=== PATIENT | male | born 2000 | race Two or more races ===

== ENCOUNTER 2025-04-02 10:29 | Emergency (ER) | payer OTHER, SELFPAY ==
--- NOTE | ~2025-04-02 | XR_ITS ---
EXAMINATION: XR CHEST CLINICAL INFORMATION: cough, sob COMPARISON: None available. TECHNIQUE: 2 views of the chest were obtained. FINDINGS: The cardiomediastinal silhouette is within normal limits. The lungs are well expanded. There is no focal consolidation, edema, or effusion. No pneumothorax. No acute osseous abnormality. XR/XR chest 2V IMPRESSION: No acute findings Electronically signed by: Zafar Kang MD 04/02/2025 11:29 AM [facility]
[2025-04-02 10:40] VITALS: BP 141/64; PULSE 89; RESP 18; TEMP 36.9; O2SAT 94; BMI 38.9
[2025-04-02 11:18] VITALS: PULSE 89; RESP 24; O2SAT 94
[2025-04-02] MEDS: Albuterol Sulfate 5 MG, Albuterol/Iprat 2.5/0.5MG 3 ML 3 ML INHALE (11:24)
[2025-04-02 11:36] LABS: MANUAL DIFF FLAG NO
[2025-04-02 11:38] LABS: Hematocrit 42.8 % (42.0-52.0); Hemoglobin 14.5 g/dl (14.0-18.0); Imm Gran Abs Auto 0.06 X10*3/uL (0.00-0.03); Imm Gran Pct Auto 0.5 % (0.0-0.4); Lymphocytes Absolute Auto 2.9 X10*3/uL (1.2-4.9); Mean Corpuscular HGB Conc 33.9 g/dl (31.0-36.0); Mean Corpuscular Hemoglobin 29.2 pg (27.0-33.0); Mean Corpuscular Volume 86.3 fL (80.0-98.0); NRBC Abs Auto 0.000 X10*3/uL (0.0-0.012); NRBC Pct Auto 0.0 /100WBC (0.0-0.2); Platelet Count 335 X10*3/uL (160-400); Red Blood Count 4.96 X10*6/uL (4.60-5.80); White Blood Count 12.5 X10*3/uL (4.8-10.8)
[2025-04-02 11:50] LABS: Anion Gap 11 (12-20); Blood Urea Nitrogen 8 mg/dL (9-16); Calcium 9.5 mg/dL (8.4-10.2); Carbon Dioxide 25 mmol/L (22-29); Chloride 108 mmol/L (96-108); Creatinine Clr Calc Pharmacy 159.7; Estimated Glomerular Filt Rate > 60; Potassium 4.0 mmol/L (3.3-5.1); Sodium 140 mmol/L (135-145)
[2025-04-02 11:55] VITALS: PULSE 85; RESP 20; O2SAT 100
[2025-04-02 11:57] LABS: COVID-19 Test Negative (Negative); IDNOW Serial# 55D5AD1C; IDNOW Serial# 58CA691E; Influenza B2 Negative (Negative)
--- NOTE | 2025-04-02 11:58 | ED_ITS ---
HPI - Asthma General Chief Complaint: Asthma Stated Complaint: trouble breathing, asthma Time Seen by Provider: 04/02/25 10:36 Source: patient, RN notes reviewed and old records reviewed Mode of arrival: ambulatory History of Present Illness ED Provider: Maren Hu PA-C HPI Narrative: 24-year-old male with a past medical history of asthma presenting to the ED complaining of productive cough of phlegm and SOB x 5 days. States he was exposed to cigarette smoke over the weekend which triggered his asthma. Has been using rescue inhaler at home. Denies having nebulizer. Denies recent steroid use. Denies fever, chills, recent travel/long car rides, pedal edema/calf tenderness, sore throat Related Data Previous Rx's ?Medication ?Instructions ?Recorded prednisone 20 mg tablet 40 mg (2 x 20 mg) PO DAILY 5 days 04/02/25 #10 tabs Allergies Allergy/AdvReac Type Severity Reaction Status Date / Time No Known Allergies Allergy Verified 04/02/25 10:44 Review of Systems 2 Review of Systems: Yes all other systems are reviewed and are negative Constitutional: Constitutional: Reports as per [facility] Past Medical History Attestation statement: The following information was validated with the patient. Source: old records reviewed Social History Social History Unable to assess alcohol history related to: Unknown Smoked in Last 30 Days: Yes Use of substances other than those prescribed or required for medical reasons: Unknown Advance Directives: No Advance Directives Information Provided: Yes Physical Exam 2 Vital Signs: Vital Signs: Last Vital Signs Temp 98.7 F 04/02/25 15:07 Pulse 72 04/02/25 15:07 Resp 20 04/02/25 15:07 BP 138/64 04/02/25 15:07 Pulse Ox 96 04/02/25 15:07 O2 Del Method Room Air 04/02/25 15:07 BMI result Body Mass Index 38.9 Const: General: cooperative, healthy appearing and no acute distress O rientation/consciousness: patient oriented x3 Limitations: no limitations HEENT: Head: Yes normal to inspection and Yes atraumatic Ears: hearing grossly normal bilaterally General nose exam: Normal external nose present Face and sinus: Yes normal facial exam Eyes: General: appearance normal, both eyes and all related structures EOM: EOMs intact bilaterally Neck: Neck: Yes normal visual inspection and Yes no meningeal signs Resp: Effort & Inspection: normal respiratory effort and no respiratory distress Auscultation: wheezes expiratory wheezes and throughout Cardio: Rate: regular rate Heart sounds: S1 normal heart sound present and S2 normal heart sound present GI: Inspection: Yes normal to inspection Palpation (GI): Soft to palpation, nontender, no guarding and not rigid : General: Yes no CVA tenderness Back/Spine/Pelvis: Back: no CVA tenderness Skin: Rashes: no rashes Wounds: no wounds Neuro: General: patient oriented x3, tone normal and no meningeal signs C ranial nerves: Yes CN's II-XII intact bilaterally Gait exam (Neuro): Normal gait present Extrem: General: Yes normal to inspection, Yes no pedal edema and Yes no calf tenderness Course Course Course Narrative: -1213--mild leukocytosis of 12.5. Labs otherwise reassuring. COVID and flu negative XR chest 2V IMPRESSION: No acute findings -1445--on re-evaluation patient reports symptomatic improvement. Lungs CTA. No appreciable wheeze. Plan to discharge home with close PCP follow-up. Results discussed with patient including worrisome signs and symptoms and strict return precautions, and when to return to the emergency department. They verbalized understanding and feel safe for discharge at this time. Medications Administered Discontinued Medications Generic Name Dose Route Start Last Admin Trade Name Freq PRN Reason Stop Dose Admin Albuterol Sulfate 2.5 mg/ 5 mg 04/02/25 11:55 04/02/25 12:05 Albuterol Sulfate 2.5 mg INHALE 04/02/25 11:56 5 mg ONCE ONE Administration Albuterol Sulfate 5 mg/ 0 mg 04/02/25 11:17 04/02/25 11:24 Albuterol/Ipratropium 3 ml INHALE 04/02/25 11:18 7.5 each ONCE ONE Administration Methylprednisolone Sodium Succinate 60 mg 04/02/25 11:03 04/02/25 11:33 Methylprednisolone Sod Succ 125 Mg/2 Ml Vial IVPUSH 04/02/25 11:04 60 mg ONCE ONE Administration Medical Decision Making Medical Decision Making MDM Narrative: 24-year-old male with a past medical history of asthma presenting to the ED complaining of productive cough of phlegm and SOB x 5 days. On exam vital signs stable, NAD, nontoxic appearing, expiratory wheeze noted throughout. No pedal edema/calf tenderness. Concern for asthma exacerbation vs viral illness vs pneumonia. Lower suspicion for ACS, PE, DVT or dissection Plan: Viral testing, CXR, ED bronch protocol, IV Solu-Medrol, re-evaluate Please refer to course for remaining clinical decision making, interpretation of labs/imaging results, and discussions with consultants and/or family members. Differential Diagnosis Differential Diagnoses: The differential diagnosis associated with the presentation includes As above Admission/Observation Consideration of admission/observation: Escalation of care including admission/observation considered Lab Data MDM Lab Attestation statement: I reviewed the patient's lab results. 04/02/25 11:31 04/02/25 11:31 Labs: Lab Results 04/02/25 04/02/25 Range/Units 11:30 11:31 WBC 12.5 H (4.8-10.8) X10*3/uL RBC 4.96 (4.60-5.80) X10*6/uL Hgb 14.5 (14.0-18.0) g/dl Hct 42.8 (42.0-52.0) % MCV 86.3 (80.0-98.0) fL MCH 29.2 (27.0-33.0) pg MCHC 33.9 (31.0-36.0) g/dl RDW 13.2 (11.0-16.0) % Plt Count 335 (160-400) X10*3/uL MPV 10.0 (9.4-12.4) fL Immature Gran % (Auto) 0.5 H (0.0-0.4) % Neut % (Auto) 64.8 (45-73) % Lymph % (Auto) 22.8 (20-40) % [place] % (Auto) 6.6 (2-11) % Eos % (Auto) 4.9 H (0-4) % Baso % (Auto) 0.4 (0-2) % Lymph # (Auto) 2.9 (1.2-4.9) X10*3/uL [place] # (Auto) 0.8 (0.1-1.2) X10*3/uL Eos # (Auto) 0.6 H (0.0-0.4) X10*3/uL Baso # (Auto) 0.1 (0.0-0.2) X10*3/uL Abs Immat Gran (auto) 0.06 H (0.00-0.03) X10*3/uL Absolute Neuts (auto) 8.1 (2.0-8.3) x10*3/uL Absolute Nucleated RBC 0.000 (0.0-0.012) X10*3/uL Nucleated RBC % (auto) 0.0 (0.0-0.2) /100WBC Sodium 140 (135-145) mmol/L Potassium 4.0 (3.3-5.1) mmol/L Chloride 108 (96-108) mmol/L Carbon Dioxide 25 (22-29) mmol/L Anion Gap 11 L (12-20) BUN 8 L (9-16) mg/dL Creatinine 0.89 (0.5-1.4) mg/dL Estim Creat Clear Calc 159.7 Estimated GFR > 60 Random Glucose 92 (60-115) mg/dL Calcium 9.5 (8.4-10.2) mg/dL COVID-19 ([facility]) Negative (Negative) COVID-19 Clin Com See Note Influenza Type A (PRO) Negative (Negative) Influenza Type B (PRO) Negative (Negative) Influenza A & B Note See Note Independent Interpretation I performed an independent interpretation of an: Plain X-Ray Radiology Impression Discussion of test interpretation with radiology: I have reviewed the radiologist's reading. External Record Review External record reviewed: Inpatient record, Office record, Outpatient record, Prior outpatient labs, Prior outpatient radiology, Primary care record and Outside ED record Tests considered The following testing was considered but not selected: As above Prescription Management I considered prescription management with: Pain Medication and Antibiotic Chronic Conditions Patient?s care impacted by: Other Social Determinants Patient?s care significantly limited by Social Determinants of Health including: Other Social Determinant of Health Critical Care Time Critical Care Time Critical Care Time: Yes Total Critical Care Time: 35 Attestation: I have personally provided critical care time exclusive of time spent on separately billable procedures. Time includes review of lab data, radiology results, discussion with consultants, and monitoring for potential decompensation. Intervention performed as documented. Discharge Plan Discharge Clinical Impression: Asthma with acute exacerbation Patient Disposition: Home, Self-Care Instructions: Asthma (DC) Additional Instructions: Your x-ray does not show pneumonia. You tested negative for COVID and flu Continue to use your rescue inhaler at home You need to get a nebulizer machine. Call to get a PCP Prednisone as a steroid please take as prescribed If her symptoms persist or worsen, you have constant worsening shortness breath, chest pain, or fever return to the ED Prescriptions: New prednisone 20 mg tablet 40 mg PO DAILY 5 Days Qty: 10 0RF Referrals: [facility] Group, Internal Medicine] - 1 week [facility] [Provider Group] - 5 days Interventions: ED Discharge Assessment Last Done: 04/02/25 15:07 Discharge Date/Time: 04/02/25 15:08 Print Language: Polish
[2025-04-02 12:00] VITALS: BP 138/64; PULSE 72; RESP 20; O2SAT 96
[2025-04-02] MEDS: Albuterol Sulfate 2.5 MG, Albuterol Sulfate (0.083%) 2.5 MG 5 MG INHALE (12:05)
--- OUTSIDE RECORDS SUMMARY | 2025-04-02 14:54 | XMS_ITS | Clinical Summary ---
Author Organization [facility] Address [address] [place] [phone] Phone Care Team Providers Care Internal Consultant Name Role Phone Unavailable Primary Care Provider Unavailabl e Allergies Active Allergy Reactions Criticality Noted Date Comments Environmental 10/14/2021 seasonal allergies Lavender Oil 10/09/2021 Medications Albuterol Sulfate 108 (90 Base) MCG/ACT aerosol powder Inhale. 10/10/2021 Acti ve fluticasone HFA (Flovent HFA) 110 MCG/ACT inhaler Inhale. 10/10/2021 Active Active Problems Problem Noted Date Diagnosed Date Vocal cord dysfunction 03/28/2019 Overview (03/28/2019): Dx by Madelin 2019 Assessment & Plan (02/04/2021 10:17 AM EDT): Followed by [facility] crew chief. No current issues. Assessment & Plan (12/11/2019 8:21 AM EDT): No issues Mild intermittent asthma 10/07/2013 Overview (12/11/2019): albuterol & flovent 110 -BID. Referred to Dr Starr 2014 Hospitalized with Asthma early September 2016. Got 5 day Pred Burst. Saw EVIN Yusuf. 09/27/16 in FU - was on flovent (110) & singulair 10 mg added as controllers in 2017. Saw Dr. Castano 09/12/18, told to decrease Flovent to 110, 1 puff bid (but didn't), and stop Singulair (not taking anyway). F/u 3 mos. 10/07- exacerbation requiring systemic steroids. Told to start Singulair through allergy season too! 10/2019: Dr Castano agreed with stopping controller meds Assessment & Plan (11/25/2021 3:16 PM EDT): Agree with using Flovent (110) 2 puffs daily with plan to increase to 2 puffs twice a day with any cold or cough symptoms. I encouraged Rahul to keep his appointment with Dr. Cadena (pediatric crew chief) at [facility] in December. His vaping was discussed again today. Follow-up as needed Assessment & Plan (02/04/2021 10:17 AM EDT): Was last seen by [facility] crew chief 01/2020. He was off all of his controller medications at that time. Plan is to follow-up in 1 year, so due for follow-up soon. Needed 5 days of prednisone 09/22/2020 for asthma exacerbation Assessment & Plan (12/11/2019 8:51 AM EDT): Off all controller meds (patient had stopped taking - used prn only). Had Virtual visit with Dr Castano 11/06/19. Has FU in Jan 2020 AAP done Assessment & Plan (04/08/2019 3:08 PM EST): No taking meds daily. Discussed need to take meds daily, mom will monitor now. Currently no asthma symptoms. Had flu vaccine at [facility] in February Assessment & Plan (11/21/2018 7:57 AM EDT): Seen by Pul 09/2018 per mom - no letter Stopped singulair Flovent 110 - 2 puffs BID Last need for steroid was 09/2018 FU with pulmonary 04/2019 FU with tile helper 08/2019 Assessment & Plan (10/08/2018 12:01 PM EDT): Last albuterol inhaler with spacer ~ 2 hours ago (4 puffs). Took 4 puffs this am Got 1 dose of decadron yesterday Restated singular yesterday Flovent 110: 2 puffs BID Assessment & Plan (10/07/2018 12:17 PM EDT): Allergies are his trigger. Albuterol 5mg neb and ipratropium 0.5mg given via neb with improvement in aeration, then very wheezy, and he was given an additional 5mg neb of albuterol. O2sat improvement and subjective improvement with each treatment. Decadron 0.6mg/kg (max 16mg) PO given. Refills of albuterol MDI and neb prescribed for home use. Instructed to use albuterol 4 puffs with aerochamber or one neb q4hr while sick. Saw Dr. Castano 09/12/18, told to decrease Flovent to 110, 1 puff bid (but didn't), and stop Singulair (not taking anyway). Mom to call him first thing tomorrow morning. If he wants to see him tomorrow, she can cancel f/u for here. Given allergy season, I instructed him to re-start Singulair given significant allergy-triggered asthma. Has f/u with Dr. Suarez 11/21 for PE, so can do asthma check then. Return precautions discussed ([facility] ED if worsens tonight). F/u 1 day for re-check of acute exacerbation (here or with Dr. Castano). Assessment & Plan (11/20/2017 8:13 AM EDT): Last note was from 04/2017. Missed FU 07/2017 Stopped singulair - did not like taste Uses flovent to control - infreq refills Does not have pulm appt pending but Mom will schedule Allergic rhinitis 03/03/2011 Overview (11/20/2017): claritin prn 11/2014 - IGE 898 units. Rast testing + to dust mite, dog & Cat dander, Kay grass,petra grass & ragweed. Referred back to Administrative Support Specialist 09/2016 by pulmonary Provider. Assessment & Plan (02/04/2021 10:17 AM EDT): Uses Xyzal as needed Assessment & Plan (12/11/2019 8:25 AM EDT): Last note from tile helper 10/25/18 - at this visit it was reported that patient had already stopped singulair Singulair stopped officially last month by crew chief (patient was not using anyway) Administrative Support Specialist recommended immunotherapy - declined - family's schedule would not be able to accommodate Assessment & Plan (11/21/2018 7:55 AM EDT): Saw Dr Barron 09/2018. Allergy shots recommended but family too busy Started singulair again September but stopped after 2 weeks Encourage restart of singulair Uses claritin as needed Assessment & Plan (11/20/2017 8:12 AM EDT): Sees Dr Barron. Started allergy shots 05/2017. Gets them weekly. No notes Pt Stopped Flonase & singulair Uses claritin prn Immunizations Immunization Administration Dates Next Due DTaP 5 09/28/2005, 3,02/18/2002,12/26,2001 HPV, Quadrivalent 03/25/2013,11/20/2012,09/20/19 13 Hep A, ped/adol 10/08/2015,09/29/2014 Hep B, ped/adol 05/20/2002,2001,2001 Hib (PRP-T) 11/14/2002, 2,2001,10/23 IPV 09/28/2005, 2,2001,10/23 Influenza Split 03/21/2013,04/30/2012,03/03/2011 Influenza, injectable, quadrivalent 04/22/2015 Influenza, injectable, quadr ivalent, preservative free 02/04/2021,03/15/2020,03/20/2019,02/27,05/10/2017,03/28/2016,03/31/2014 Influenza, injectable, trivalent 03/20/2019,04/22,02/23/2009 MMR 09/28/2005,08/19/2002 Meningococcal B Trumenba 12/18/2019,11/21/2018 Meningococcal Conj (Menactra) MCV4P 11/20/2017,0 09/19/2012 Pneumococcal Conjugate 11/14/2002,2001,2001,10/23 Pneumococcal Polysaccharide 02/04/2021 Tdap 09/19/2012 Varicella 09/03/2007,08/19/2002 Family History Medical History Relation Name Comments Asthma Father Obesity Father Sleep apnea Father Hypertension Maternal Grandfather Diabetes Other Hearing loss Other Seizures Other Asthma Sister Diana Relation Name Status Comments Father Alive Maternal Grandfather Mother Ge Klein Alive Other Family history of Sudden /GA under age 55 Sister Diana Alive Social History Tobacco Use Types Packs/Day Years Used Date Smoking Tobacco: Never Smokeless Tobacco: Never Comments:Never smoker Alcohol Use Standard Drinks/Week Comments No 0 (1 standard drink = 0.6 oz pur e alcohol) Hunger/Food Answer Date Recorded In the last 12 months, did y ou or your family ever eat less than you felt you should because there wasn't enough money for food? No 02/04/2021 Stable Housing Answer Date Recorded Are you worried that in the next 2 months you may not have stable housing? No 02/04/2021 Transportation Concerns Answer Date Rec orded In the last 12 months, have you or your family ever had to go without healthcare because you didn't have a way to get there? No 02/04/2021 Hazards in Home Answer Date Recorded Think about the place you li ve. Do you have problems with any of the following? Pests (mice or roaches), mold, no/not working smoke detectors, water leaks, no window guards. No 2020 Financing Utilities Answer Date Recorde d In the last 12 months, has t he electric, gas, oil, or water company threatened to shut off your services in your home? No 02/04/2021 Safety at Home Answer Date Recorded Are you or your family worried about feeling saf e in your home? No 02/04/2021 Outside Support Answer Date Recorded Do you feel that you need mo re support from other people or programs to help you care for yourself or your family? No 02/04/2021 Understanding Health Concerns Answer Da te Recorded Do you need help understandi ng your or your child's healthcare needs (diagnosis, medications, plan, etc.)? No 02/04/2021 Financing Health Concerns Answer Date R ecorded In the last 12 months, was t here a time when your child needed to see a doctor or get medications or supplies but could not because of cost? No 02/04/2021 Missing School or Work Answer Date Brayden rded Did you or your child miss s chool or work because of a health problem that could have been avoided? No 02/04/2021 Sex and Gender Information Value Date Recorded Sex Assigned at Not on file Legal Sex Male 4:46 PM EDT Gender Identity Male 03/10/2020 6:15 AM EDT Sexual Orientation Straight 12/11/2019 8: 46 AM EDT Last Filed Vital Signs Vital Sign Reading Time Taken Comments Blood Pressure 123/82 11/25/2021 3:02 PM EDT Pulse 103 11/25/2021 3:02 PM EDT Temperature 36.2 C (97.1 F) 11/25/2021 3:02 PM EDT Respiratory Rate 22 10/09/2021 11:5 0 AM EDT Oxygen Saturation 92% 10/09/2021 11: 50 AM EDT Inhaled Oxygen Concentration - - Weight 96.1 kg (211 lb 12.8 oz) 11/25/2021 3:02 PM EDT Height 172.1 cm (5' 7.75 ) 02/04/2021 9:46 AM ED T Body Mass Index 32.44 02/04/2021 9:46 AM EDT Plan of Treatment Health Maintenance Due Date Last Done Comments DTaP,Tdap,and Td Vaccines (7 - Td or Tdap) 09/19/2022 09/19/2012, 09/28/2005, 02/18/2003, Additional history exists Influenza Vaccines (#1) 2024 02/05/20, 03/15/2020, 03/20/2019, Additional history exists COVID-19 Vaccine (2024- 6 season) 2025 10/05/2020, 09/14/2020 Hepatitis B Vaccines Completed 05/20/2002, 2001, 2001 HIB Vaccines Completed 11/14/2002, 01/22, 2001, Additional history exists IPV Vaccines Completed 09/28/2005, 01/22, 2001, Additional history exists MMR Vaccines Completed 09/28/2005, 08/19/2002 Varicella Vaccines Completed 09/03/2007, 08/19/2002 HPV Vaccines Completed 03/25/2013, 06/2012, 09/19/2012 Hepatitis A Vaccines Completed 10/08/2015, 09/30/19 15 Meningococcal Vaccine Completed 11/20/2017, 013 Men B Vaccine Completed 12/18/2019, 11/21/2018 Pneumococcal Vaccine Completed 02/04/2021, 11/14/2002, 02/18/2002, Additional history exists Insurance ERNESTINA CRUZ [id number] [facility] NON PCC
--- OUTSIDE RECORDS SUMMARY | 2025-04-02 14:54 | XMS_ITS | Clinical Summary ---
Author Organization [facility] [address] [place] [address] Address [address], [place] Phone Care Team Providers Care Upkeep Mechanic Name Role Phone Destin Estes MD Primary Care Provider Social History Tobacco Use Types Packs/Day Years Used Date Smoking Tobacco: Never Assessed Sex and Gender Information Value Date Recorded Sex Assigned at Not on file Legal Sex Male 9:03 AM EDT Gender Identity Not on file Sexual Orientation Not on file Plan of Treatment Upcoming Encounters Date Type Department Care Team (Late st Contact Info) Description 05/26/2025 8:00 AM EST Office Visit Adult Medicine [facility] [address] [place] [address] Aga Bar PA [address] [place] [address] Health Maintenance Due Date Last Done Comments HPV Vaccines (1 - Male 3-dos e series) 2016 Meningococcal B Vaccine (1 o f 2 - Standard) 2017 DTaP,Tdap,and Td Vaccines (1 - Tdap) 2020 Hepatitis B Vaccines (1 of 3 - 19+ 3-dose series) 2020 Depression Screening 05/22/2024 COVID-19 Vaccine (1 - 2023-2 5 season) 2025 Influenza Vaccine (#1) 2025 HIV Screening 01/24/2025 Hepatitis C Screening 01/24/2025 Social Influencers of Health Screening 01/24/2025 RSV Immunization Adult Patie nts (1 - 1-dose 75+ series) 2076 HIB Vaccines Aged Out No longer eligi ble based on patient's age to complete this topic Hepatitis A Vaccines Aged Out No long er eligible based on patient's age to complete this topic IPV Vaccines Aged Out No longer eligi ble based on patient's age to complete this topic MMR Vaccines Aged Out No longer eligi ble based on patient's age to complete this topic Meningococcal ACWY Vaccine Aged Out N o longer eligible based on patient's age to complete this topic Pneumococcal Vaccine: Pediat rics (0 to 5 Years) and At-Risk Patients (6 to 49 Years) Aged Out No longer eligible b ased on patient's age to complete this topic RSV Immunization Patients Un charles 20 months Aged Out No longer eligible b ased on patient's age to complete this topic Varicella Vaccines Aged Out No longer eligible based on patient's age to complete this topic Insurance [facility] Care Teams Upkeep Mechanic Relationship Specialty Start Date End Date Destin Estes MD [address] [place] [id number] PCP - General Internal Medicine 01/24/25
--- OUTSIDE RECORDS SUMMARY | 2025-04-02 14:54 | XMS_ITS | Encounter Summary ---
Author Organization [facility] Address [address] [place] [phone] Phone Care Team Providers Care Fire Extinguisher Technician Name Role Phone Mavis Suarez MD Primary Care Provider [phone] Encounter Details Date Type Department Care Team (Late st Contact Info) Description 10/03/2016 Documentation [facility] Family Medicine [address] [place] [address] Family Medicine, Physician [address] [place], [place] [id number] Social History Tobacco Use Types Packs/Day Years Used Date Smoking Tobacco: Never Assessed Sex and Gender Information Value Date Recorded Sex Assigned at Not on file Legal Sex Male 4:46 PM EDT Gender Identity Male 03/10/2020 6:15 AM EDT Sexual Orientation Straight 12/11/2019 8: 46 AM EDT documented as of this encounter Plan of Treatment Not on file documented as of this encounter Visit Diagnoses Not on filedocumented in this encounter Care Teams Fire Extinguisher Technician Relationship Specialty Start Date End Date Mavis Suarez MD [address] [place] [id number] PCP - General 12/30/16 12/27/22 documented as of this encounter
--- OUTSIDE RECORDS SUMMARY | 2025-04-02 14:54 | XMS_ITS | Encounter Summary ---
Author Organization [facility] Address [address] [place] [phone] Phone Care Team Providers Care Fulfillment Specialist Name Role Phone Mavis Suarez MD Primary Care Provider [phone] Encounter Details Date Type Department Care Team (Late st Contact Info) Description 11/03/2016 Documentation [facility] Family Medicine [address] [place] [address] Family Medicine, Physician [address] [place], [place] [phone] Social History Tobacco Use Types Packs/Day Years Used Date Smoking Tobacco: Never Comments:Never smoker Sex and Gender Information Value Date Recorded Sex Assigned at Not on file Legal Sex Male 4:46 PM EDT Gender Identity Male 03/10/2020 6:15 AM EDT Sexual Orientation Straight 12/11/2019 8: 46 AM EDT documented as of this encounter Plan of Treatment Not on file documented as of this encounter Visit Diagnoses Not on filedocumented in this encounter Care Teams Fulfillment Specialist Relationship Specialty Start Date End Date Mavis Suarez MD [address] [place] [address] [place] [id number] PCP - General 12/30/16 12/27/22 documented as of this encounter
--- OUTSIDE RECORDS SUMMARY | 2025-04-02 14:54 | XMS_ITS | Encounter Summary ---
Author Organization [facility] Address [address] [place] [address] Phone Care Team Providers Care Furniture Upholstery Mechanic Name Role Phone Mavis Suarez MD Primary Care Provider [phone] Reason for Visit * Reason Comments Med Refill Encounter Details Date Type Department Care Team ([facility] Contact Info) Description 04/20/2018 Refill [facility] [place] [address] [place] [address] Mavis Suarez MD [address] [place] [address] Seasonal allergic rhinitis Social History Tobacco Use Types Packs/Day Years Used Date Smoking Tobacco: Never Smokeless Tobacco: Never Comments:Never smoker Alcohol Use Standard Drinks/Week Comments No 0 (1 standard drink = 0.6 oz pur e alcohol) Sex and Gender Information Value Date Recorded Sex Assigned at Not on file Legal Sex Male 4:46 PM EDT Gender Identity Male 03/10/2020 6:15 AM EDT Sexual Orientation Straight 12/11/2019 8: 46 AM EDT documented as of this encounter Miscellaneous Notes * Telephone Encounter - Aisha Smith LPN - 04/20/2018 10:04 AM EST LORATADINE 10MG TABLETS Last pe 12/06 documented in this encounter Plan of Treatment Not on file documented as of this encounter Visit Diagnoses Diagnosis Seasonal allergic rhinitis Allergic rhinitis, cause unspecified documented in this encounter Care Teams Furniture Upholstery Mechanic Relationship Specialty Start Date End Date Mavis Suarez MD [address] [place] [address] ERNESTINA Ding [address] PCP - General 12/30/16 12/27/22 documented as of this encounter
--- OUTSIDE RECORDS SUMMARY | 2025-04-02 14:54 | XMS_ITS | Encounter Summary ---
Author Organization [facility] Address [address] [place] [address] Phone Care Team Providers Care Palaeontologist Name Role Phone Mavis Suarez MD Primary Care Provider [phone] Encounter Details Date Type Department Care Team (Late st Contact Info) Description 10/31/2016 Documentation [facility] [place] [address] [place] [address] Family Medicine, Physician [address] [place], [place] [address] Social History Tobacco Use Types Packs/Day Years [...] on filedocumented in this encounter Care Teams Palaeontologist Relationship Specialty Start Date End Date Mavis Suarez MD [address] [place] [address] [place] [address] PCP - General 12/30/16 12/27/22 documented as of this encounter
--- OUTSIDE RECORDS SUMMARY | 2025-04-02 14:54 | XMS_ITS | Encounter Summary ---
Author Organization [facility] Address [address] [place] [address] Phone Care Team Providers Care Hazardous Materials Analyst Name Role Phone Mavis Suarez MD Primary Care Provider [phone] Reason for Visit * Reason Comments Med Refill Encounter Details Date Type Department Care Team ([facility] Contact Info) Description 07/07/2017 Refill [facility] [place] [address] [place] [address] Mert Howell MD [address] [place] [address] Seasonal allergic rhinitis, unspecified chronicity, unspecified trigger (Primary Dx) Social History Tobacco Use Types Packs/Day Years Used Date Smoking Tobacco: Never Comments:Never smoker Sex and Gender Information Value Date Recorded Sex Assigned at Not on file Legal Sex Male 4:46 PM EDT Gender Identity Male 03/10/2020 6:15 AM EDT Sexual Orientation Straight 12/11/2019 8: 46 AM EDT documented as of this encounter Miscellaneous Notes * Telephone Encounter - Enrique Causey LPN - 07/07/2017 10:00 AM EST Pharm requesting refill on Loratadine. Last PE 10/10/16. documented in this encounter Plan of Treatment Not on file documented as of this encounter Visit Diagnoses Diagnosis Seasonal allergic rhinitis, unspecified chronicity, unspecified trigger- Primary documented in this encounter Care Teams Hazardous Materials Analyst Relationship Specialty Start Date End Date Mavis Suarez MD [address] [place] [address] PCP - General 12/30/16 12/27/22 documented as of this encounter
--- OUTSIDE RECORDS SUMMARY | 2025-04-02 14:54 | XMS_ITS | Encounter Summary ---
Author Organization [facility] Address [address] [place] [address] Phone Care Team Providers Care Net Making Supervisor Name Role Phone Mavis Suarez MD Primary Care Provider [phone] Encounter Details Date Type Department Care Team (Late st Contact Info) Description 09/25/2016 Documentation [facility] [place] Family Medicine [address] [place] [address] Family Medicine, Physician [address] [place], [place] [address] Social History Tobacco Use Types Packs/Day Years [...] on filedocumented in this encounter Care Teams Net Making Supervisor Relationship Specialty Start Date End Date Mavis Suarez MD [address] [place] [address] PCP - General 12/30/16 12/27/22 documented as of this encounter
--- OUTSIDE RECORDS SUMMARY | 2025-04-02 14:54 | XMS_ITS | Encounter Summary ---
Author Organization [facility] Address [address] [place] [address] Phone Care Team Providers Care Fretted Instruments Inspector Name Role Phone Mavis Suarez MD Primary Care Provider [phone] Encounter Details Date Type Department Care Team ([facility] Contact Info) Description 01/05/2017 Conversion Encounter [facility] [place] [address] [place] [address] Social History Tobacco Use Types Packs/Day Years [...] on filedocumented in this encounter Care Teams Fretted Instruments Inspector Relationship Specialty Start Date End Date Mavis Suarez MD [address] [place] [address] PCP - General 12/30/16 12/27/22 documented as of this encounter
[2025-04-02 15:07] VITALS: BP 138/64; PULSE 72; RESP 20; TEMP 37.1; O2SAT 96
== END 2025-04-02 15:08 | disposition home or self-care (01) ==
PROVIDERS: Physician Assistant; Emergency Provider Emergency Medicine
DX: J45.901 Unspecified asthma with (acute) exacerbation (principal); Z77.22 Contact with and (suspected) exposure to environmental tobacco smoke (acute) (chronic)
CPT/HCPCS: 71046; 80048; 85025; 87502; 87635; 94640; 99284; 99285; J2919

== ENCOUNTER → 2025-04-02 11:03 | Outpatient (BNV) | payer OTHER, SELFPAY | PROVIDERS: Visit Provider Radiology Diagnostic Ultrasound | DX: R05.9 Cough, unspecified (principal); R06.02 Shortness of breath | CPT/HCPCS: 71046 ==

== ENCOUNTER 2025-05-09 10:38 | Inpatient (IN) | payer OTHER, SELFPAY ==
[2025-05-09] VITALS (10 sets, daily range): BP systolic 105–166; BP diastolic 51–108; PULSE 80–143; RESP 18–34; TEMP 36.2–37.8; O2SAT 95–100; BMI 38.5
--- NOTE | 2025-05-09 | ECG_ITS ---
Test Reason : cp Blood Pressure : */* mmHG Vent. Rate : 149 BPM Atrial Rate : 149 BPM P-R Int : 128 ms QRS Dur : 150 ms QT Int : 292 ms P-R-T Axes : 116 53 -11 degrees QTcB Int : 459 ms Poor data quality Sinus tachycardia No previous ECGs available Referred By: Magen Avelar Electronically Signed By: Reinaldo Flores
--- NOTE | ~2025-05-09 | CT_ITS ---
CLINICAL HISTORY: left lower abdominal pain Exam: Contrast-enhanced CT abdomen and pelvis with multiplanar reformats. Comparison: None. Findings: CT abdomen: Lung bases are clear. Liver is free of focal lesions and ductal dilatation. Gallbladder appears unremarkable. Spleen is unremarkable. Pancreas and adrenal glands appear unremarkable. Kidneys appear unremarkable. No free intraperitoneal fluid or retroperitoneal masses or adenopathy. Abdominal aorta is normal caliber. Bowel loops reveal inflamed sigmoid colonic diverticula with segmental colonic wall thickening and pericolonic stranding, along with a small amount of extraluminal gas (4; 626 -671), findings compatible with sigmoid colonic diverticulitis with microperforation. No abscess appreciated. No other abnormal bowel wall thickening or distention. The appendix appears unremarkable. CT pelvis: Urinary bladder is free of gross filling defects. No pelvic masses, fluid or adenopathy. Osseous structures reveal no destructive osseous lesions. Impression: 1. Sigmoid colonic diverticulitis with microperforation. No evidence of abscess. This document has been electronically signed by: Mert Pederson MD on 05/09/2025 18:16:37
--- NOTE | 2025-05-09 10:42 | ED.ABDPAIN ---
HPI - Abdominal Pain General Chief Complaint: General Medical Stated Complaint: abd pain, constipation Time Seen by Provider: 05/09/25 16:09 Source: patient, RN notes reviewed and old records reviewed Mode of arrival: ambulatory Limitations: no limitations History of Present Illness ED Provider: Mildred HPI narrative: 24-year-old male presents for evaluation of left lower abdominal pain. 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 He had a severe pain in his left lower abdomen that radiates around to his left groin pain He does have some mild pain in his lower back. He had several episodes of vomiting. He reports his pain has worsened today. He reports some constipation but no difficulty urinating. Denies any history of inguinal hernias. Denies any fevers, chills. His pain is a 10/10. He denies any testicular pain or swelling he denies any previous abdominal surgeries but did have a recent right hand surgery about a month and a half ago after a trauma at work involving a laceration to the 5th finger Related Data Home Medications ?Medication ?Instructions ?Recorded ?Confirmed albuterol sulfate 90 mcg/actuation 2 puff inhalation Q4-6H PRN 05/09/25 05/09/25 aerosol inhaler Respiratory Distress Allergies Allergy/AdvReac Type Severity Reaction Status Date / Time piperacillin (From Zosyn) Allergy Wheezing Verified 05/09/25 20:03 tazobactam (From Zosyn) Allergy Wheezing Verified 05/09/25 20:03 Review of Systems Constitutional: Denies body ache(s), Denies chills, Denies fever(s) and Denies headache(s) Denies vertigo, Denies dizziness and Denies headache(s) Cardiovascular: Denies chest pain and Denies dyspnea on exertion Respiratory: Denies cough and Denies dyspnea on exertion Gastrointestinal: Reports abdominal pain, Reports constipation, Reports nausea and Reports vomiting Musculoskeletal: Reports back pain, Denies arthralgias, Denies joint swelling and Denies limited range of motion Skin/Breast: Denies rash Denies vertigo, Denies dizziness and Denies headache(s) Psychiatric: Denies anxiety PMF Past Medical History Medical History (Updated 05/10/25 @ 01:57 by Dwayne Levy) Diverticulitis Social History Social History Household Members: Family Housing: Apartment Patient Tobacco Use Status: Never used Tobacco Smoked in Last 30 Days: No e-Cigarette/Vaping Use: Never Used Use of substances other than those prescribed or required for medical reasons: No Have you been hit, kicked, punched, or otherwise hurt by someone within the past year? If so, by whom?: No Do you feel safe in your current relationship?: Yes Is there a partner from a previous relationship who is making you feel unsafe now?: No Are you made to feel afraid or neglected: No Advance Directives: No Advance Directives Information Provided: No Do you have a plan to hurt others: No Plan Nutrition Risks: No Nutritional Risk Poor oral hygiene: No Physical Exam ED Vital Signs: Vital Signs - 24 hr 05/09/25 10:43 05/09/25 15:46 05/09/25 16:00 Temperature 97.2 F 98.8 F Pulse Rate 115 H 128 H 80 Respiratory Rate 18 18 18 Blood Pressure 147/108 H 145/97 H 166/97 H Pulse Oximetry 97 98 99 Oxygen Delivery Method Room Air Room Air Room Air 05/09/25 18:00 Temperature Pulse Rate Respiratory Rate Blood Pressure 150/88 H Pulse Oximetry Oxygen Delivery Method BMI result Body Mass Index 38.5 Const General: healthy appearing, no acute distress, alert and awake Nutritional Appearance: well nourished Orientation/consciousness: patient oriented x3 HENMT Head: Yes normocephalic and Yes atraumatic Eyes Eyelids: Yes eyelids normal Conjunctivae: conjunctivae normal Sclerae: sclerae normal Corneas: corneas normal Pupils: Equal, round and reactive pupils present EOM: EOMs intact bilaterally Neck Neck: Yes full ROM Resp Effort & Inspection: normal respiratory effort, able to speak in complete sentences and not labored Cardio Rate: regular rate Rhythm: regular rhythm GI Inspection: No distended Palpation (GI): Soft to palpation, not firm, Tenderness to palpation present (GI) in the LLQ, Guarding due to palpation present (GI) in the LLQ and not rigid Auscultation: normoactive bowel sounds Skin General skin exam: no rashes or lesions noted and elasticity normal Neuro General: patient oriented x3 Cranial nerves: Yes Equal, round and reactive pupils present and Yes Bilaterally intact EOM present Cognition (Neuro): normal cognition Extrem Other: Moving all extremities well without any obvious deformities Course Course Course Narrative: This is a Rapid Medical Exam performed in triage by Maren Hu PA-C. Full HPI, ROS and PE to be performed by primary ED provider. 24 yo M presenting to the ED c/o low back pain s/p heavy lifting at work yesterday - now with radiation to bladder, nausea and vomiting today. Took Motrin & Tylenol w/o relief. Also reports constipation, last BM 3 days ago. Is passing flatus. PE: uncomfortable, tachycardic, abdomen soft w/suprapubic ttp. no rebound or guarding Plan: labs, UA Reevaluation(s) Reevaluation #1: the patient had an episode of syncope and unresponsiveness immediately after starting Zosyn. I went to evaluate the patient at time I got there he was awake, alert and oriented. He was tachycardic to 140. He is complaining of shortness of breath and had some faint wheezing on exam I did not hear any stridor. He did not have any facial swelling or urticaria initially. The patient has a history of asthma Time: 19:10 Reevaluation #2: the patient now has subtle hives on his face, neck I do suspect this was an anaphylactic reaction. Zosyn was added to his allergy list. I did discuss with the general surgeon has been with the patient, Dr. Avelar and the patient is evaluated with the hospitalist Time: 20:38 Medical Decision Making Medical Decision Making [facility] Narrative: 24-year-old male presenting for evaluation of lower abdominal pain. His symptoms started yesterday after lifting heavy. He has tenderness in the left inguinal region but I do not feel any palpable mass in the area. The patient has [place] vomiting, [place] [id number]. We will obtain a CT scan of the abdomen pelvis. I think the most likely diagnosis and inguinal hernia. Also in the differential would be severe constipation, diverticulitis or diverticular perforation. acute appendicitis is favored to be less likely as the patient's symptoms are mostly left-sided. obstructive uropathy is also possible though favored to be less likely as his renal function is baseline. Still awaiting urinalysis Differential Diagnosis Differential Diagnoses: The differential diagnosis associated with the presentation includes inguinal hernia Obstructive uropathy Constipation Bowel perforation Lab Data [facility] Lab Attestation statement: I reviewed the patient's lab results. Leukocytosis [address]. No significant anemia. Normal platelet count. No electrolyte abnormalities warranting intervention. 05/09/25 15:57 05/09/25 15:57 Labs: Lab Results 05/09/25 05/09/25 Range/Units 15:57 16:28 WBC 22.0 H (4.8-10.8) X10*3/uL RBC 5.07 (4.60-5.80) X10*6/uL Hgb 14.6 (14.0-18.0) g/dl Hct 42.6 (42.0-52.0) % MCV 84.0 (80.0-98.0) fL MCH 28.8 (27.0-33.0) pg MCHC 34.3 (31.0-36.0) g/dl RDW 13.2 (11.0-16.0) % Plt Count 342 (160-400) X10*3/uL MPV 10.4 (9.4-12.4) fL Immature Gran % (Auto) 0.5 H (0.0-0.4) % Neut % (Auto) 84.0 H (45-73) % Lymph % (Auto) 7.6 L (20-40) % [place] % (Auto) 7.5 (2-11) % Eos % (Auto) 0.2 (0-4) % Baso % (Auto) 0.2 (0-2) % Lymph # (Auto) 1.7 (1.2-4.9) X10*3/uL [place] # (Auto) 1.7 H (0.1-1.2) X10*3/uL Eos # (Auto) 0.0 (0.0-0.4) X10*3/uL Baso # (Auto) 0.0 (0.0-0.2) X10*3/uL Abs Immat Gran (auto) 0.10 H (0.00-0.03) X10*3/uL Absolute Neuts (auto) 18.5 H (2.0-8.3) x10*3/uL Absolute Nucleated RBC 0.000 (0.0-0.012) X10*3/uL Nucleated RBC % (auto) 0.0 (0.0-0.2) /100WBC Smear Tech's Comments VERIFIED Sodium 138 (135-145) mmol/L Potassium 4.1 (3.3-5.1) mmol/L Chloride 106 (96-108) mmol/L Carbon Dioxide 22 (22-29) mmol/L Anion Gap 14 (12-20) BUN 10 (9-16) mg/dL Creatinine 0.80 (0.5-1.4) mg/dL Estim Creat Clear Calc 176.7 Estimated GFR > 60 Random Glucose 107 (60-115) mg/dL Lactic Acid 1.8 (0.5-2.0) mmol/L Calcium 9.9 (8.4-10.2) mg/dL Magnesium 1.7 (1.6-2.6) mg/dL Total Bilirubin 1.2 H (0.0-1.0) mg/dL Direct Bilirubin 0.5 (0.0-0.5) mg/dL AST 30 (5-37) U/L ALT 20 (0-40) U/L Alkaline Phosphatase 101 (39-117) U/L Total Protein 8.4 H (6.5-8.0) g/dL Albumin 4.6 (3.5-5.0) g/dL Lipase 19 (8-78) U/L Medications Administered Generic Name Dose Route Start Last Admin Trade Name Freq PRN Reason Stop Dose Admin Lactated Ringer's 1,000 mls @ 100 mls/hr 05/09/25 18:30 05/10/25 01:15 Lr IVCONT Not Given .Q10H ELLA Levofloxacin 750 mg in 150 mls @ 100 mls/hr 05/09/25 22:00 05/10/25 00:34 Levaquin IV Infused Q24H ELLA Infusion Metronidazole 500 mg in 100 mls @ 100 mls/hr 05/09/25 22:00 05/09/25 23:11 Flagyl IV Infused Q8H ELLA Infusion Morphine Sulfate 3 mg 05/09/25 18:21 05/09/25 19:45 Morphine Sulfate 4 Mg/Ml Cartridge IVPUSH 3 mg Q3H PRN Administration Pain, Severe (Pain Scale 7-10) Protocol Ondansetron HCl 4 mg 05/09/25 18:21 05/09/25 19:48 Ondansetron Hcl 4 Mg/2 Ml Vial IVPUSH 4 mg Q6H PRN Administration Nausea and Vomiting Sodium Chloride 3 ml 05/10/25 00:00 05/09/25 21:33 0.9 % Sodium Chloride Flush 3 Ml Syringe IVFLUSH Not Given QSHIFT ELLA Discontinued Medications Generic Name Dose Route Start Last Admin Trade Name Freq PRN Reason Stop Dose Admin Diphenhydramine HCl 50 mg 05/09/25 19:22 05/09/25 19:31 Diphenhydramine Hcl 50 Mg/Ml Vial IVPUSH 05/09/25 19:23 50 mg ONCE ONE Administration Sodium Chloride 1,000 mls @ 999 mls/hr 05/09/25 16:15 05/09/25 17:28 Ns IV 05/09/25 17:15 Infused .Q1H1M ELLA Infusion Piperacillin Sod/Tazobactam 50 mls @ 100 mls/hr 05/09/25 18:22 05/09/25 19:00 Sod 3.375 gm/ Sodium Chloride IV 05/09/25 18:51 Infused ONCE ONE Infusion Lactated Ringer's 1,000 mls @ 999 mls/hr 05/09/25 19:30 05/09/25 20:56 Lr IV 05/09/25 20:30 Infused .Q1H1M ELLA Infusion Acetaminophen 1,000 mg in 100 mls @ 400 mls/hr 05/09/25 21:22 05/09/25 22:10 Ofirmev IV 05/09/25 21:36 Infused ONCE ONE Infusion Iohexol 100 ml 05/09/25 17:42 05/09/25 17:42 Iohexol 350 Mg/Ml 100 Ml Infus..Btl IV 05/09/25 17:43 85 ml ONCE ONE Administration Levalbuterol HCl 1.25 mg 05/09/25 19:26 05/09/25 20:12 Levalbuterol Hcl 1.25 Mg/3 Ml Vial.Neb INHALE 05/09/25 19:27 1.25 mg ONCE ONE Administration Methylprednisolone Sodium Succinate 125 mg 05/09/25 19:22 05/09/25 19:33 Methylprednisolone Sod Succ 125 Mg/2 Ml Vial IVPUSH 05/09/25 19:23 125 mg ONCE ONE Administration Morphine Sulfate 4 mg 05/09/25 16:14 05/09/25 16:27 Morphine Sulfate 4 Mg/Ml Cartridge IVPUSH 05/09/25 16:15 4 mg ONCE ONE Administration Protocol Ondansetron HCl 4 mg 05/09/25 16:14 05/09/25 16:27 Ondansetron Hcl 4 Mg/2 Ml Vial IVPUSH 05/09/25 16:15 4 mg ONCE ONE Administration Critical Care Time Critical Care Time Critical Care Time: Yes Total Critical Care Time: 60 Attestation: The patient presented for severe [place] [address]. He was noted to be tachycardic. Initial presentation was concerning for inguinal hernia versus obstructive uropathy. The patient is found to have acute diverticulitis with microperforation requiring general surgery consultation and admission. The patient had an anaphylactic reaction to Zosyn requiring immediate intervention as he was unresponsive and hypoxic. He was treated with supplemental oxygen, IV hydration, discontinuation of Zosyn, administration of steroids, antihistamines and bronchodilator. EpiPen was held as there was no evidence of airway compromise during my evaluation in his heart rate was already 140-150. He improved with the above medications and was ultimately admitted to the floor Discharge Plan Discharge Clinical Impression: Abdominal pain, left lower quadrant, Anaphylaxis Patient Disposition: Admitted As Inpatient Interventions: Admission Worksheet (ED) Last Done: 05/09/25 20:29 Discharge Date/Time: 05/10/25 00:16
[2025-05-09 16:05] LABS: Hematocrit 42.6 % (42.0-52.0); Hemoglobin 14.6 g/dl (14.0-18.0); Imm Gran Abs Auto 0.10 X10*3/uL (0.00-0.03); Imm Gran Pct Auto 0.5 % (0.0-0.4); Lymphocytes Absolute Auto 1.7 X10*3/uL (1.2-4.9); MANUAL DIFF FLAG SCAN; Mean Corpuscular HGB Conc 34.3 g/dl (31.0-36.0); Mean Corpuscular Hemoglobin 28.8 pg (27.0-33.0); Mean Corpuscular Volume 84.0 fL (80.0-98.0); NRBC Abs Auto 0.000 X10*3/uL (0.0-0.012); NRBC Pct Auto 0.0 /100WBC (0.0-0.2); Platelet Count 342 X10*3/uL (160-400); Red Blood Count 5.07 X10*6/uL (4.60-5.80); SCAN SMEAR FLAG 1; White Blood Count 22.0 X10*3/uL (4.8-10.8)
[2025-05-09 16:19] LABS: Alanine Aminotransferase 20 U/L (0-40); Albumin Level 4.6 g/dL (3.5-5.0); Alkaline Phosphatase 101 U/L (39-117); Anion Gap 14 (12-20); Aspartate Amino Transferase 30 U/L (5-37); Blood Urea Nitrogen 10 mg/dL (9-16); Calcium 9.9 mg/dL (8.4-10.2); Carbon Dioxide 22 mmol/L (22-29); Chloride 106 mmol/L (96-108); Creatinine Clr Calc Pharmacy 176.7; Estimated Glomerular Filt Rate > 60; Lipase 19 U/L (8-78); Magnesium 1.7 mg/dL (1.6-2.6); Potassium 4.1 mmol/L (3.3-5.1); Sodium 138 mmol/L (135-145); Total Protein 8.4 g/dL (6.5-8.0)
--- OUTSIDE RECORDS SUMMARY | 2025-05-09 16:39 | XMS_ITS | Encounter Summary ---
Author Organization [facility] Address [address] [place] [address] Phone Care Team Providers Care Engine Pilot Name Role Phone Mavis Suarez MD Primary Care Provider [phone] Encounter Details Date Type Department Care Team (Late st Contact Info) Description 10/03/2016 Documentation [facility] [place] Family Medicine [address] [place] [address] Family Medicine, Physician [address] [place], [place] [address] Social History Tobacco Use Types Packs/Day Years [...] on filedocumented in this encounter Care Teams Engine Pilot Relationship Specialty Start Date End Date Mavis Suarez MD [address] [place] [address] PCP - General 12/30/16 12/27/22 documented as of this encounter
--- OUTSIDE RECORDS SUMMARY | 2025-05-09 16:39 | XMS_ITS | Encounter Summary ---
Author Organization [facility] Address [address] [place] [address] Phone Care Team Providers Care Mold Machine Operator Name Role Phone Mavis Suarez MD Primary Care Provider [phone] Reason for Visit * Reason Comments Med Refill Encounter Details Date Type Department Care Team ([facility] Contact Info) Description 04/20/2018 Refill [facility] [place] [address] [place] [address] Mavis Suarez MD [address] [place] [address] Seasonal allergic rhinitis Social History Tobacco Use [...] unspecified documented in this encounter Care Teams Mold Machine Operator Relationship Specialty Start Date End Date Mavis Suarez MD [address] [place] [address] ERNESTINA Ding [address] PCP - General 12/30/16 12/27/22 documented as of this encounter
--- OUTSIDE RECORDS SUMMARY | 2025-05-09 16:40 | XMS_ITS | Clinical Summary ---
Author Organization [facility] [address] [place] [address] Address [address] [place], [place] Phone Care Team Providers Care Drag Car Racer Name Role Phone Destin Estes MD Primary [...] 8:00 AM EST Office Visit Adult Medicine [facility] [address] [place] [address] Aga Bar PA [address] [place] [address] Health Maintenance Due Date Last Done Comments HPV Vaccines (1 - Male 3-dos e series) 2016 Meningococcal B Vaccine (1 o f 2 - Standard) 2017 DTaP,Tdap,and Td Vaccines (1 - Tdap) 2020 Hepatitis B Vaccines (1 of 3 - 19+ 3-dose series) 2020 Depression Screening 05/22/2024 COVID-19 Vaccine (1 - 2024-2 6 season) 2025 Influenza Vaccine (#1) 2025 HIV [...] patient's age to complete this topic Insurance [facility] Care Teams Drag Car Racer Relationship Specialty Start Date End Date Destin Estes MD [address] [place] [address] PCP - General Internal Medicine 01/24/25
--- OUTSIDE RECORDS SUMMARY | 2025-05-09 16:40 | XMS_ITS | Encounter Summary ---
Author Organization [facility] Address [address] [place] [address] Phone Care Team Providers Care Leaf Conditioner Name Role Phone Mavis Suarez MD Primary Care Provider [phone] Encounter Details Date Type Department Care Team (Late st Contact Info) Description 09/25/2016 Documentation [facility] [place] [address] [place] [address] Family Medicine, Physician [address] [place], [place] [address] Social History Tobacco Use Types Packs/Day Years [...] on filedocumented in this encounter Care Teams Leaf Conditioner Relationship Specialty Start Date End Date Mavis Suarez MD [address] [place] [address] PCP - General 12/30/16 12/27/22 documented as of this encounter
--- OUTSIDE RECORDS SUMMARY | 2025-05-09 16:40 | XMS_ITS | Encounter Summary ---
Author Organization [facility] Address [address] [place] [address] Phone Care Team Providers Care Brick Chimney Supervisor Name Role Phone Mavis Suarez MD Primary Care Provider [phone] Reason for Visit * Reason Comments Med Refill Encounter Details Date Type Department Care Team ([facility] Contact Info) Description 07/07/2017 Refill [facility] [place] [address] [place] [address] Mert Howell MD [address] [place], [place] [id number] Seasonal allergic rhinitis, unspecified chronicity, unspecified trigger [...] Primary documented in this encounter Care Teams Brick Chimney Supervisor Relationship Specialty Start Date End Date Mavis Suarez MD [address] [place] [address] PCP - General 12/30/16 12/27/22 documented as of this encounter
--- OUTSIDE RECORDS SUMMARY | 2025-05-09 16:40 | XMS_ITS | Encounter Summary ---
Author Organization [facility] Address [address] [place] [address] Phone Care Team Providers Care Sheetmetal Worker Name Role Phone Mavis Suarez MD Primary Care Provider Encounter Details Date Type Department Care Team (Late st Contact Info) Description 11/03/[address] [facility] [place] [address] [place] [address] Family Medicine, Physician [address] [place], [place] [address] Social History Tobacco Use Types Packs/Day Years [...] on filedocumented in this encounter Care Teams Sheetmetal Worker Relationship Specialty Start Date End Date Mavis Suarez MD [address] [place] [address] [place] [address] PCP - General 12/30/16 12/27/22 documented as of this encounter
--- OUTSIDE RECORDS SUMMARY | 2025-05-09 16:40 | XMS_ITS | Encounter Summary ---
Author Organization [facility] Address [address] [place] [id number] Phone Care Team Providers Care Golf Course Superintendent Name Role Phone Mavis Suarez MD Primary Care Provider [phone] Encounter Details Date Type Department Care Team (Late st Contact Info) Description 10/31/2016 Documentation [facility] [place] Family Medicine [address] [place] [address] Family Medicine, Physician [address] [place], [place] [id number] Social History Tobacco Use Types Packs/Day Years [...] on filedocumented in this encounter Care Teams Golf Course Superintendent Relationship Specialty Start Date End Date Mavis Suarez MD [address] [place] [address] [place] [id number] PCP - General 12/30/16 12/27/22 documented as of this encounter
--- OUTSIDE RECORDS SUMMARY | 2025-05-09 16:40 | XMS_ITS | Encounter Summary ---
Author Organization [facility] Address [address] [place] [phone] Phone Care Team Providers Care Spring Coiler Hand Name Role Phone Mavis Suarez MD Primary Care Provider [phone] Encounter Details Date Type Department Care Team ([facility] Contact Info) Description 01/05/2017 Conversion Encounter [facility] [place] [address] [place] [address] Social History Tobacco Use Types Packs/Day Years [...] on filedocumented in this encounter Care Teams Spring Coiler Hand Relationship Specialty Start Date End Date Mavis Suarez MD [address] [place] [address] PCP - General 12/30/16 12/27/22 documented as of this encounter
--- OUTSIDE RECORDS SUMMARY | 2025-05-09 16:40 | XMS_ITS | Clinical Summary ---
Author Organization [facility] Address [address] [place] [phone] Phone Care Team Providers Care Disability Case Manager Name Role Phone Unavailable Primary Care Provider [...] Plan (02/04/2021 10:17 AM EDT): Followed by [facility] web operations lead. No current issues. Assessment & Plan (12/11/2019 [...] keep his appointment with Dr. Cadena (pediatric web operations lead) at [facility] in December. His vaping was discussed again today. Follow-up as needed Assessment & Plan (02/04/2021 10:17 AM EDT): Was last seen by [facility] web operations lead 01/2020. He was off all of his [...] no asthma symptoms. Had flu vaccine at [facility] in February Assessment & Plan (11/21/2018 7:57 AM EDT): Seen by Pul 09/2018 per mom - no letter Stopped singulair Flovent 110 - 2 puffs BID Last need for steroid was 09/2018 FU with pulmonary 04/2019 FU with video game maker 08/2019 Assessment & Plan (10/08/2018 12:01 PM [...] do asthma check then. Return precautions discussed ([facility] ED if worsens tonight). F/u 1 [...] grass,petra grass & ragweed. Referred back to Hydroelectric Plant Structural Engineer 09/2016 by pulmonary Provider. Assessment & Plan (02/04/2021 10:17 AM EDT): Uses Xyzal as needed Assessment & Plan (12/11/2019 8:25 AM EDT): Last note from video game maker 10/25/18 - at this visit it was reported that patient had already stopped singulair Singulair stopped officially last month by web operations lead (patient was not using anyway) Hydroelectric Plant Structural Engineer recommended immunotherapy - declined - family's schedule [...] Klein Alive Other Family history of Sudden /RI under age 55 Sister Diana Alive Social [...] 02/18/2002, Additional history exists Insurance ERNESTINA CRUZ [id number] [facility] NON PCC
[2025-05-09] MEDS: iohexoL 350 MG/ML 100 ML INFUS..BTL IV (17:42)
--- NOTE | 2025-05-09 18:08 | P.HPGS_ITS ---
History of Present Illness History of Present Illness Date of Service: 05/11/25 Chief complaint: acute diverticulitis Narrative: Oumar Lomax is a 24 year old male with morbid obesity, asthma, here in the ER because of left lower quadrant/groin pain. He says that this started yesterday afternoon. He said he thought that this started after he was lifting heavy objects at work with [employer]. This has been since that time. He felt that this started from the left flank all the way to the left lower quadrant and groin areas He has pain currently is minimal. He does describe having some he has been vomiting today, multiple times although with small amounts. He is passing flatus. He denies fever or chills. He has had no previous surgeries on his abdomen. Review of Systems Constitutional: Constitutional: Denies chills and Denies fever(s) Cardiovascular: Cardiovascular: Denies chest pain, Denies dyspnea and Denies dyspnea on exertion Respiratory: Respiratory: Denies cough, Denies dyspnea and Denies dyspnea on exertion Gastrointestinal: Gastrointestinal: Denies hematochezia and Denies change in bowel habits Genitourinary: Genitourinary: Denies hematuria and Denies difficulty urinating Musculoskeletal: Musculoskeletal: Denies back pain and Denies limited range of motion Neurologic: Denies focal weakness and Denies convulsions Psychiatric: Psychiatric: Denies depression and Denies mood swings PMFSH Past Medical History Medical History (Updated 05/10/25 @ 01:57 by Dwayne Levy) Diverticulitis Social History Social History Household Members: Family Housing: Apartment Patient Tobacco Use Status: Never used Tobacco Smoked in Last 30 Days: No e-Cigarette/Vaping Use: Never Used Use of substances other than those prescribed or required for medical reasons: No Currently Displaying Signs/Symptoms of Drug Intoxication Withdrawal: No Have you been hit, kicked, punched, or otherwise hurt by someone within the past year? If so, by whom?: No Do you feel safe in your current relationship?: Yes Is there a partner from a previous relationship who is making you feel unsafe now?: No Are you made to feel afraid or neglected: No Advance Directives: No Advance Directives Information Provided: No Do you have a plan to hurt others: No Plan Nutrition Risks: No Nutritional Risk Poor oral hygiene: No Meds Allergies Allergy/AdvReac Type Severity Reaction Status Date / Time piperacillin (From Zosyn) Allergy Wheezing Verified 05/09/25 20:03 tazobactam (From Zosyn) Allergy Wheezing Verified 05/09/25 20:03 Home Medications ?Medication ?Instructions ?Recorded ?Confirmed ?Last Taken ?Type albuterol sulfate 90 mcg/actuation 2 puff inhalation Q 4-6H PRN 05/09/25 05/09/25 Unknown History aerosol inhaler Respiratory Distress Physical Exam Vital Signs: Vital Signs: Last Vital Signs Temp 98.8 F 05/09/25 15:46 Pulse 80 05/09/25 16:00 Resp 18 05/09/25 16:00 BP 150/88 H 05/09/25 18:00 Pulse Ox 99 05/09/25 16:00 O2 Del Method Room Air 05/09/25 16:00 BMI result Body Mass Index 38.5 Const: Other: Morbidly obese General: comfortable and no acute distress Orientation/consciousness: patient oriented x3 Neck: Neck: Yes no lymphadenopathy Resp: Auscultation: clear to auscultation bilaterally Cardio: Rhythm: regular rhythm GI: Other: Mild tenderness left lower quadrant and left groin, Palpation (GI): Soft to palpation, nontender and no guarding Neuro: General: patient oriented x3 Results Results Labs: Short CBC 05/09/25 Range/Units 15:57 WBC 22.0 H (4.8-10.8) X10*3/uL Hgb 14.6 (14.0-18.0) g/dl Hct 42.6 (42.0-52.0) % Plt Count 342 (160-400) X10*3/uL BMP 05/09/25 15:57 Sodium 138 Potassium 4.1 Chloride 106 Carbon Dioxide 22 BUN 10 Creatinine 0.80 Calcium 9.9 Liver Function 05/09/25 Range/Units 15:57 Total Bilirubin 1.2 H (0.0-1.0) mg/dL Direct Bilirubin 0.5 (0.0-0.5) mg/dL AST 30 (5-37) U/L ALT 20 (0-40) U/L Alkaline Phosphatase 101 (39-117) U/L Albumin 4.6 (3.5-5.0) g/dL Assessment and Plan (1) Diverticulitis: Status: Acute 23-year-old male here in the ER because of left lower quadrant/left groin pain since yesterday. I have reviewed his CAT scan. His official path report is pending but it does appear that he has significant inflammatory changes with fat trending of the distal sigmoid in the pelvis. There is no abscess. He also has leukocytosis. I will therefore admit him for IV antibiotics. He will be on bowel rest with just clear liquids. His exam is otherwise benign. Final path report shows diverticulitis with small amount of extraluminal air in the distal sigmoid consistent with a microperforation He is hemodynamically stable Quality Stroke Does the patient have a stroke diagnosis?: No VTE Prior VTE?: No VTE Risk Level:: Medical - low VTE Device Contraindication: N/A - Device Ordered VTE Drug Contraindication: Treatment Not Indicated Procedures Date of Service Date of Service: 05/11/25
--- NOTE | 2025-05-09 19:45 | PC.NURSE ---
Pt admitted to surgical service for diverticulitis with micro perf. t/w nael dixon per ordr, immediately upon infusion initiation, pt stated that he was going to vomit,infusion stopped. pt proceeded to vomit became pale, diaphoretic, and began wheezing-PA O'samir to bedside, pt medicated to allg reaction
[2025-05-09] MEDS: Lactated Ringers 1,000 ML 999 ML IV (20:01)
--- NOTE | 2025-05-09 20:12 | PHA.MEDREC ---
Pharmacy Consult ? Medication Reconciliation Pharmacy has completed the medication reconciliation.Med rec complete, spoke to patient and compared with pharmacy claims
--- NOTE | 2025-05-09 20:58 | PC.NURSE ---
pt remains in ED d/t tachycardia- hospitalist evaluated pt at bedside, awaiting future bed assignment orders, [place] vs [place]
--- NOTE | 2025-05-09 21:16 | P.CONHOSP_ITS ---
History of Present Illness Data of Consult Service Date: 05/09/25 Primary Care Provider: None Physician HPI Reason for consult: Medical management 24-year-old male with a history of mild intermittent asthma and diverticulitis presents with acute severe left lower quadrant abdominal pain after heavy lifting, associated with vomiting, constipation, leukocytosis, tachycardia, and focal LLQ tenderness. Anaphylactic reaction to piperacillin-tazobactam in ED. IV steroids, antihistamine, and bronchodilator administered. At the time of evaluation the patient did not endorse shortness of breath, nor pruritus. CT abdomen/pelvis with contrast pending to evaluate for inguinal hernia, recurrent or complicated diverticulitis, or severe constipation. FORMERLY [facility], [facility] Medical History (Updated 05/09/25 @ 18:10 by Magen Avelar MD) Diverticulitis Social History Household Members: Family Housing: Apartment Patient Tobacco Use Status: Never used Tobacco Smoked in Last 30 Days: No e-Cigarette/Vaping Use: Never Used Use of substances other than those prescribed or required for medical reasons: No Have you been hit, kicked, punched, or otherwise hurt by someone within the past year? If so, by whom?: No Do you feel safe in your current relationship?: Yes Is there a partner from a previous relationship who is making you feel unsafe now?: No Are you made to feel afraid or neglected: No Advance Directives: No Advance Directives Information Provided: No Do you have a plan to hurt others: No Plan Nutrition Risks: No Nutritional Risk Poor oral hygiene: No Meds Allergies Allergy/AdvReac Type Severity Reaction Status Date / Time piperacillin (From Zosyn) Allergy Wheezing Verified 05/09/25 20:03 tazobactam (From Zosyn) Allergy Wheezing Verified 05/09/25 20:03 Active Medications: Current Medications Acetaminophen (Acetaminophen 325 Mg Tablet) 650 mg PO Q6H PRN PRN Reason: Pain, Mild 1-3,fever,headache Albuterol Sulfate (Albuterol Sulfate 90 Mcg 8 Gm Inhaler) 2 puff INHALE Q4H PRN PRN Reason: wheezing Calcium Carbonate (Calcium Carbonate 750 Mg Tab.Chew) 750 mg PO Q4H PRN PRN Reason: Heartburn Lactated Ringer's (Lr) 1,000 mls @ 100 mls/hr IVCONT .Q10H [facility] Levofloxacin (Levaquin) 750 mg in 150 mls @ 100 mls/hr IV Q24H [facility] Metronidazole (Flagyl) 500 mg in 100 mls @ 100 mls/hr IV Q8H [facility] Melatonin (Melatonin 3 Mg Tablet) 6 mg PO BEDTIME PRN PRN Reason: Insomnia Morphine Sulfate (Morphine Sulfate 4 Mg/Ml Cartridge) 3 mg IVPUSH Q3H PRN; Protocol PRN Reason: Pain, Severe (Pain Scale 7-10) Last Admin: 05/09/25 19:45 Dose: 3 mg Ondansetron HCl (Ondansetron Hcl 4 Mg/2 Ml Vial) 4 mg IVPUSH Q6H PRN PRN Reason: Nausea and Vomiting Last Admin: 05/09/25 19:48 Dose: 4 mg Sodium Chloride (0.9 % Sodium Chloride Flush 3 Ml Syringe) 3 ml IVFLUSH QSHIFT [facility] Home Medications ?Medication ?Instructions ?Recorded ?Confirmed ?Last Taken ?Type albuterol sulfate 90 mcg/actuation 2 puff inhalation Q 4-6H PRN 05/09/25 05/09/25 Unknown History aerosol inhaler Respiratory Distress Physical Exam 2 Vital Signs and Narrative: Vital Signs: Last Vital Signs Temp 100.1 F 05/09/25 21:10 Pulse 118 H 05/09/25 21:10 Resp 18 05/09/25 21:10 BP 123/63 05/09/25 21:10 Pulse Ox 96 05/09/25 21:10 O2 Del Method Nasal Cannula 05/09/25 21:10 O2 Flow Rate 2 05/09/25 21:10 BMI result Body Mass Index 38.5 General: Pleasant, no distress ENT: No localized swelling of the lips, tongue, face Cardiovascular: Tachycardic Respiratory: CTAB, no wheeze, rales, rhonchi Gastrointestinal: Soft, non distended, non tender, non guarding Skin: urticaria of the face and neck Results Labs 05/09/25 15:57 05/09/25 15:57 Labs: Laboratory Results - last 24 hr 05/09/25 05/09/25 15:57 16:28 MCV 84.0 MCH 28.8 MCHC 34.3 RDW 13.2 Plt Count 342 MPV 10.4 Immature Gran % (Auto) 0.5 H Neut % (Auto) 84.0 H Lymph % (Auto) 7.6 L [place] % (Auto) 7.5 Eos % (Auto) 0.2 Baso % (Auto) 0.2 Lymph # (Auto) 1.7 [place] # (Auto) 1.7 H Eos # (Auto) 0.0 Baso # (Auto) 0.0 Abs Immat Gran (auto) 0.10 H Absolute Neuts (auto) 18.5 H Absolute Nucleated RBC 0.000 Nucleated RBC % (auto) 0.0 Smear Tech's Comments VERIFIED Anion Gap 14 Estim Creat Clear Calc 176.7 Estimated GFR > 60 Random Glucose 107 Lactic Acid 1.8 Calcium 9.9 Magnesium 1.7 Total Bilirubin 1.2 H Direct Bilirubin 0.5 AST 30 ALT 20 Alkaline Phosphatase 101 Total Protein 8.4 H Albumin 4.6 Lipase 19 Assessment and Plan (1) Diverticulitis: Status: Acute Plan 24-year-old male with a history of diverticulitis presenting with acute severe left lower quadrant abdominal pain after heavy lifting, associated with vomiting, constipation, leukocytosis, tachycardia, and focal LLQ tenderness, complicated by an ED anaphylactic reaction to piperacillin-tazobactam. CT abdomen and pelvis concerning for complicated diverticulitis. Complicated diverticulitis with concerns for microperforation, with leucocytosis and tachycardia -Plan of care as outlined by the primary team General surgery Anaphylaxis reaction to piperacillin-tazobactam in the emergency department, improving. Zosyn was discontinued and added to list of allergies by the ED clinician -Cardiorespiratory monitoring -supplemental oxygen as needed -albuterol nebulizer as needed for bronchospasm -as needed Benadryl IV for urticaria and pruritus -IV steroids if symptoms reoccur Mild intermittent asthma: Stable -albuterol as needed Healthcare Proxy: Ge, mother [phone] Life-Sustaining Treatment Preference: Attempt cardiopulmonary resuscitation and intubation
[2025-05-09] MEDS: metroNIDAZOLE/NS 500 MG/100 ML PIGGYBACK 100 MG IV (21:18)
[2025-05-09] MEDS: Lactated Ringers 1,000 ML 100 ML IVCONT (21:18)
--- NOTE | 2025-05-09 23:13 | PC.NURSE ---
CONRAD Lu at bedside to reassess pt, states that pt is ready to go upstairs to med surg floor. Symptoms have resolved from earlier allergic reaction, vital signs now WNL.
--- NOTE | 2025-05-09 23:15 | PC.NURSE ---
No adverse reactions noted to metronidazole or Levofloxacin.
[2025-05-10 00:02] VITALS: BMI 38.5
[2025-05-10 00:14] VITALS: BP 133/87; PULSE 87; RESP 18; TEMP 36.2; O2SAT 93
[2025-05-10 03:46] VITALS: BP 100/54; PULSE 86; RESP 19; TEMP 36.3; O2SAT 100
[2025-05-10] MEDS: Lactated Ringers 1,000 ML 100 ML IVCONT ×2 (05:02→20:30)
[2025-05-10] MEDS: metroNIDAZOLE/NS 500 MG/100 ML PIGGYBACK 100 MG IV ×3 (05:03→21:13)
[2025-05-10 06:50] VITALS: BP 126/91; PULSE 88; RESP 16; TEMP 36.6; O2SAT 94
--- NOTE | 2025-05-10 09:22 | P.PNGS_ITS ---
Subjective Subjective Date of Service: 05/10/25 Interval history: Apparently had a reaction to Zosyn yesterday in the ER - had tachycardia, transient unresponsiveness, then hives He says he feels better this morning He denies any significant abdominal pain He says he had a good night Physical Exam 2 Vital Signs: Vital Signs: Last Vital Signs Temp 98 F 05/10/25 06:50 Pulse 88 05/10/25 06:50 Resp 16 05/10/25 06:50 BP 126/91 H 05/10/25 06:50 Pulse Ox 94 05/10/25 06:50 O2 Del Method Room Air 05/10/25 06:50 O2 Flow Rate 2 05/10/25 00:14 BMI result Body Mass Index 38.5 Const: General: comfortable and no acute distress Resp: Effort & Inspection: normal respiratory effort Cardio: Rate: regular rate GI: Other: Minimal pain on deep palpation in the lower abdomen Palpation (GI): Soft to palpation, not firm and no guarding Objective Data Active Medications Acetaminophen (Acetaminophen 325 Mg Tablet) 650 mg PO Q6H PRN PRN Reason: Pain, Mild 1-3,fever,headache Albuterol Sulfate (Albuterol Sulfate 90 Mcg 8 Gm Inhaler) 2 puff INHALE Q4H PRN PRN Reason: wheezing Calcium Carbonate (Calcium Carbonate 750 Mg Tab.Chew) 750 mg PO Q4H PRN PRN Reason: Heartburn Diphenhydramine HCl (Diphenhydramine Hcl 50 Mg/Ml Vial) 25 mg IVPUSH Q6H PRN PRN Reason: Urticaria, pruritus Lactated Ringer's (Lr) 1,000 mls @ 100 mls/hr IVCONT .Q10H [facility] Last Infusion: 05/10/25 05:56 Dose: 100 mls/hr Documented By: KASIA Levofloxacin (Levaquin) 750 mg in 150 mls @ 100 mls/hr IV Q24H [facility] Last Infusion: 05/10/25 00:34 Dose: Infused Documented By: KASIA Metronidazole (Flagyl) 500 mg in 100 mls @ 100 mls/hr IV Q8H [facility] Last Infusion: 05/10/25 07:30 Dose: Infused Documented By: HERO Melatonin (Melatonin 3 Mg Tablet) 6 mg PO BEDTIME PRN PRN Reason: Insomnia Morphine Sulfate (Morphine Sulfate 4 Mg/Ml Cartridge) 3 mg IVPUSH Q3H PRN; Protocol PRN Reason: Pain, Severe (Pain Scale 7-10) Last Admin: 05/09/25 19:45 Dose: 3 mg Documented By: JARRED Ondansetron HCl (Ondansetron Hcl 4 Mg/2 Ml Vial) 4 mg IVPUSH Q6H PRN PRN Reason: Nausea and Vomiting Last Admin: 05/09/25 19:48 Dose: 4 mg Documented By: JARRED Sodium Chloride (0.9 % Sodium Chloride Flush 3 Ml Syringe) 3 ml IVFLUSH QSHIFT [facility] Last Admin: 05/09/25 21:33 Dose: Not Given Documented By: JARRED Non-Admin Reason: IV Running Labs 05/10/25 10:15 05/09/25 15:57 Labs: Laboratory Results - last 24 hr 05/09/25 05/09/25 15:57 16:28 MCV 84.0 MCH 28.8 MCHC 34.3 RDW 13.2 Plt Count 342 MPV 10.4 Immature Gran % (Auto) 0.5 H Neut % (Auto) 84.0 H Lymph % (Auto) 7.6 L [place] % (Auto) 7.5 Eos % (Auto) 0.2 Baso % (Auto) 0.2 Lymph # (Auto) 1.7 [place] # (Auto) 1.7 H Eos # (Auto) 0.0 Baso # (Auto) 0.0 Abs Immat Gran (auto) 0.10 H Absolute Neuts (auto) 18.5 H Absolute Nucleated RBC 0.000 Nucleated RBC % (auto) 0.0 Smear Tech's Comments VERIFIED Anion Gap 14 Estim Creat Clear Calc 176.7 Estimated GFR > 60 Random Glucose 107 Lactic Acid 1.8 Calcium 9.9 Magnesium 1.7 Total Bilirubin 1.2 H Direct Bilirubin 0.5 AST 30 ALT 20 Alkaline Phosphatase 101 Total Protein 8.4 H Albumin 4.6 Lipase 19 Procedures Date of Service Date of Service: 05/10/25 Progress Note: A&P Assessment and plan (1) Diverticulitis: Status: Acute Assessment and Plan: Note of small microperforation clinically looks well No fever No significant tenderness Repeat CBC pending Okay to have clear liquids IV antibiotics - now on Levaquin and Flagyl Time Spent With Patient Time: Total time managing care of this patient today ____ minutes. Quality Stroke Does the patient have a stroke diagnosis?: No VTE Prior VTE?: No VTE Risk Level:: Medical - low VTE Device Contraindication: N/A - Device Ordered VTE Drug Contraindication: Treatment Not Indicated
[2025-05-10 10:26] LABS: Hematocrit 36.8 % (42.0-52.0); Hemoglobin 12.8 g/dl (14.0-18.0); Mean Corpuscular HGB Conc 34.8 g/dl (31.0-36.0); Mean Corpuscular Hemoglobin 29.5 pg (27.0-33.0); Mean Corpuscular Volume 84.8 fL (80.0-98.0); NRBC Abs Auto 0.000 X10*3/uL (0.0-0.012); NRBC Pct Auto 0.0 /100WBC (0.0-0.2); Platelet Count 289 X10*3/uL (160-400); Red Blood Count 4.34 X10*6/uL (4.60-5.80); White Blood Count 22.4 X10*3/uL (4.8-10.8)
--- NOTE | 2025-05-10 14:15 | PM.EVENT ---
Event Note Date of Service: 05/11/25 Event Note: Seen on afternoon rounds Feels well Says he has minimal pain No fever Abdomen is soft and very benign WBC still elevated Limit to clear liquids for now Clinically stable Continue IV antibiotics Mother at bedside Time Spent With Patient Time: Total time managing care of this patient today ____ minutes.
[2025-05-10 15:03] VITALS: BP 126/79; PULSE 81; RESP 18; O2SAT 97
[2025-05-10 18:55] VITALS: BP 129/81; PULSE 84; RESP 14; TEMP 37; O2SAT 98
[2025-05-11 03:57] VITALS: BP 118/72; PULSE 94; RESP 16; TEMP 36.3; O2SAT 96
[2025-05-11] MEDS: metroNIDAZOLE/NS 500 MG/100 ML PIGGYBACK 100 MG IV ×3 (05:09→22:33)
[2025-05-11 07:39] VITALS: BP 110/72; PULSE 69; RESP 16; TEMP 36.6; O2SAT 95
[2025-05-11 08:39] LABS: Hematocrit 37.2 % (42.0-52.0); Hemoglobin 12.1 g/dl (14.0-18.0); Mean Corpuscular HGB Conc 32.5 g/dl (31.0-36.0); Mean Corpuscular Hemoglobin 28.6 pg (27.0-33.0); Mean Corpuscular Volume 87.9 fL (80.0-98.0); NRBC Abs Auto 0.000 X10*3/uL (0.0-0.012); NRBC Pct Auto 0.0 /100WBC (0.0-0.2); Platelet Count 300 X10*3/uL (160-400); Red Blood Count 4.23 X10*6/uL (4.60-5.80); White Blood Count 16.7 X10*3/uL (4.8-10.8)
[2025-05-11 09:11] LABS: Anion Gap 12 (12-20); Blood Urea Nitrogen 17 mg/dL (9-16); Carbon Dioxide 24 mmol/L (22-29); Chloride 109 mmol/L (96-108); Creatinine Clr Calc Pharmacy 164.3; Estimated Glomerular Filt Rate > 60; Potassium 3.8 mmol/L (3.3-5.1); Sodium 141 mmol/L (135-145)
[2025-05-11 09:20] LABS: Calcium 8.9 mg/dL (8.4-10.2)
--- NOTE | 2025-05-11 09:59 | PM.PNGS ---
Subjective Subjective Date of Service: 05/11/25 Interval history: Feels well Denies significant abdominal pain Admits to having small amounts of emesis bowel movements overnight Passing good amounts of flatus and BMs No fever Physical Exam Vital Signs: Vital Signs: Last Vital Signs Temp 97.8 F 05/11/25 07:39 Pulse 69 05/11/25 07:39 Resp 16 05/11/25 07:39 BP 110/72 05/11/25 07:39 Pulse Ox 95 05/11/25 07:39 O2 Del Method Room Air 05/11/25 07:39 O2 Flow Rate 2 05/10/25 00:14 BMI result Body Mass Index 38.5 Const: Other: Morbidly obese General: comfortable and no acute distress Resp: Effort & Inspection: normal respiratory effort Cardio: Rate: regular rate GI: Palpation (GI): Soft to palpation, not firm, Tenderness to palpation present (GI) (Minimal pain to deep palpation in the lower abdomen) and no guarding Objective Data Active Medications Acetaminophen (Acetaminophen 325 Mg Tablet) 650 mg PO Q6H PRN PRN Reason: Pain, Mild 1-3,fever,headache Albuterol Sulfate (Albuterol Sulfate 90 Mcg 8 Gm Inhaler) 2 puff INHALE Q4H PRN PRN Reason: wheezing Calcium Carbonate (Calcium Carbonate 750 Mg Tab.Chew) 750 mg PO Q4H PRN PRN Reason: Heartburn Diphenhydramine HCl (Diphenhydramine Hcl 50 Mg/Ml Vial) 25 mg IVPUSH Q6H PRN PRN Reason: Urticaria, pruritus Lactated Ringer's (Lr) 1,000 mls @ 80 mls/hr IVCONT .[id number] [facility] Last Infusion: 05/11/25 06:17 Dose: 100 mls/hr Documented By: KASIA Levofloxacin (Levaquin) 750 mg in 150 mls @ 100 mls/hr IV Q24H [facility] Last Infusion: 05/10/25 23:52 Dose: Infused Documented By: KASIA Metronidazole (Flagyl) 500 mg in 100 mls @ 100 mls/hr IV Q8H [facility] Last Infusion: 05/11/25 06:17 Dose: Infused Documented By: KASIA Melatonin (Melatonin 3 Mg Tablet) 6 mg PO BEDTIME PRN PRN Reason: Insomnia Morphine Sulfate (Morphine Sulfate 4 Mg/Ml Cartridge) 3 mg IVPUSH Q3H PRN; Protocol PRN Reason: Pain, Severe (Pain Scale 7-10) Last Admin: 05/09/25 19:45 Dose: 3 mg Documented By: JARRED Ondansetron HCl (Ondansetron Hcl 4 Mg/2 Ml Vial) 4 mg IVPUSH Q6H PRN PRN Reason: Nausea and Vomiting Last Admin: 05/10/25 20:48 Dose: 4 mg Documented By: KASIA Sodium Chloride (0.9 % Sodium Chloride Flush 3 Ml Syringe) [facility] Last Admin: 05/11/25 08:13 Dose: Not Given Documented By: HERO Non-Admin Reason: IV Running Labs 05/11/25 07:38 05/11/25 07:38 Labs: Laboratory Results - last 24 hr 05/10/25 05/11/25 10:15 07:38 MCV 84.8 87.9 MCH 29.5 28.6 MCHC 34.8 32.5 RDW 13.3 13.4 Plt Count 289 300 MPV 10.3 10.5 Absolute Nucleated RBC 0.000 0.000 Nucleated RBC % (auto) 0.0 0.0 Anion Gap 12 Estim Creat Clear Calc 164.3 Estimated GFR > 60 Random Glucose 90 Calcium 8.9 D Microbiology Microbiology Results: Microbiology 05/09/25 20:09 Blood Culture - Preliminary Blood - Venous No growth after 24 hours. 05/09/25 18:58 Blood Culture - Preliminary Blood - Venous No growth after 24 hours. Procedures Date of Service Date of Service: 05/11/25 Progress Note: A&P Assessment and plan (1) Diverticulitis: Status: Acute Assessment and Plan: With microperforation Appears comfortable No fever WBC trending down Exam very benign He does describe small amounts of emesis after bowel movement overnight We will keep on clear liquids for now in view of this Looks well overall Time Spent With Patient Time: Total time managing care of this patient today ____ minutes. Quality Stroke Does the patient have a stroke diagnosis?: No VTE Prior VTE?: No VTE Risk Level:: Medical - low VTE Device Contraindication: N/A - Device Ordered VTE Drug Contraindication: Treatment Not Indicated
--- NOTE | 2025-05-11 14:30 | PM.EVENT ---
Event Note Date of Service: 05/12/25 Event Note: Seen on afternoon rounds Had asked for pain meds earlier because of sharp left-sided pain Currently very sleepy after pain med No vomiting Says pain has resolved Remains soft, benign, no obvious tenderness currently Continue IV antibiotics Keep on clear liquids for now Possible follow up CAT scan tomorrow Time Spent With Patient Time: Total time managing care of this patient today ____ minutes.
[2025-05-11 16:00] VITALS: BP 116/60; PULSE 92; RESP 19; TEMP 37.1; O2SAT 94
--- NOTE | 2025-05-11 16:35 | MHC.CM.PN ---
PT REPORTS HE LIVES WITH HIS FIANCE, 8 MONTH OLD DAUGHTER AND FATHER IN LAW HE IS INDEPENDENT WITH NO SERVICES OR DME DECLINES A HCP REPORTS HE HAS A NEW PT APPT AT [facility], BUT DOES NOT KNOW PROVIDER OR DATE DCP: HOME VIA PRIVATE TRANSPORT
[2025-05-11 17:10] LABS: Appearance Urine Clear; Glucose Urine UA Negative (Negative); PH >= 9.0 (5.0-9.0); Specific Gravity - Urine 1.025 (1.005-1.025); UMIC TRIGGER UA YES
[2025-05-11] MEDS: Lactated Ringers 1,000 ML 80 ML IVCONT (19:15)
[2025-05-11 20:00] VITALS: BP 127/77; PULSE 84; RESP 19; TEMP 36.8; O2SAT 96
[2025-05-12 04:00] VITALS: BP 108/58; PULSE 76; RESP 16; TEMP 36.6; O2SAT 95
[2025-05-12] MEDS: metroNIDAZOLE/NS 500 MG/100 ML PIGGYBACK 100 MG IV ×3 (05:22→22:01)
[2025-05-12 07:04] LABS: Hematocrit 39.3 % (42.0-52.0); Hemoglobin 12.9 g/dl (14.0-18.0); Mean Corpuscular HGB Conc 32.8 g/dl (31.0-36.0); Mean Corpuscular Hemoglobin 29.2 pg (27.0-33.0); Mean Corpuscular Volume 88.9 fL (80.0-98.0); NRBC Abs Auto 0.000 X10*3/uL (0.0-0.012); NRBC Pct Auto 0.0 /100WBC (0.0-0.2); Platelet Count 296 X10*3/uL (160-400); Red Blood Count 4.42 X10*6/uL (4.60-5.80); White Blood Count 14.5 X10*3/uL (4.8-10.8)
[2025-05-12 07:39] LABS: Anion Gap 14 (12-20); Blood Urea Nitrogen 14 mg/dL (9-16); Calcium 8.7 mg/dL (8.4-10.2); Carbon Dioxide 19 mmol/L (22-29); Chloride 110 mmol/L (96-108); Creatinine Clr Calc Pharmacy 178.9; Estimated Glomerular Filt Rate > 60; Potassium 4.4 mmol/L (3.3-5.1); Sodium 139 mmol/L (135-145)
[2025-05-12 07:57] VITALS: BP 126/88; PULSE 73; RESP 14; TEMP 36.2; O2SAT 97
--- NOTE | 2025-05-12 07:57 | PM.PNGS ---
Subjective Subjective Date of Service: 05/12/25 <Domonique Romero PA-C - Last Filed: 05/12/25 08:00> 05/12/25 <Magen Avelar MD - Last Filed: 05/12/25 08:13> Interval history: Feels much better this morning. Denies any abdominal pain. Reports did have some sharp gas pains following a BM yesterday afternoon but this resolved. has been tolerating liquids without nausea, vomiting. Feels hungry. Has been ambulating in room. <Domonique Romero PA-C - Last Filed: 05/12/25 08:00> Physical Exam Vital Signs: Vital Signs: Last Vital Signs Temp 97.9 F 05/12/25 04:00 Pulse 76 05/12/25 04:00 Resp 16 05/12/25 04:00 BP 108/58 L 05/12/25 04:00 Pulse Ox 95 05/12/25 04:00 O2 Del Method Room Air 05/12/25 04:00 O2 Flow Rate 2 05/10/25 00:14 BMI result Body Mass Index 38.5 <Domonique Romero PA-C - Last Filed: 05/12/25 08:00> Const: General: comfortable, no acute distress and alert <MILLY Celis Last Filed: 05/12/25 08:00> Orientation/consciousness: patient oriented x3 <MILLY Celis Last Filed: 05/12/25 08:00> Resp: Effort & Inspection: normal respiratory effort <MILLY Celis Last Filed: 05/12/25 08:00> GI: Other: soft nondistended mild suprapubic tenderness <MILYL Celis Last Filed: 05/12/25 08:00> Palpation (GI): no guarding and not rigid <MILLY Celis Last Filed: 05/12/25 08:00> Percussion: Yes normal to percussion <MILLY Celis Last Filed: 05/12/25 08:00> Skin: General skin exam: no rashes or lesions noted <MILLY Celis Last Filed: 05/12/25 08:00> Neuro: General: patient oriented x3 and moves all extremities <Domonique Romero PA-C - Last Filed: 05/12/25 08:00> Objective Data Active Medications Acetaminophen (Acetaminophen 325 Mg Tablet) 650 mg PO Q6H PRN PRN Reason: Pain, Mild 1-3,fever,headache Albuterol Sulfate (Albuterol Sulfate 90 Mcg 8 Gm Inhaler) 2 puff INHALE Q4H PRN PRN Reason: wheezing Calcium Carbonate (Calcium Carbonate 750 Mg Tab.Chew) 750 mg PO Q4H PRN PRN Reason: Heartburn Diphenhydramine HCl (Diphenhydramine Hcl 50 Mg/Ml Vial) 25 mg IVPUSH Q6H PRN PRN Reason: Urticaria, pruritus Lactated Ringer's (Lr) 1,000 mls @ 80 mls/hr IVCONT .[id number] [facility] Last Infusion: 05/12/25 01:15 Dose: 80 mls/hr Documented By: JENISE Levofloxacin (Levaquin) 750 mg in 150 mls @ 100 mls/hr IV Q24H [facility] Last Infusion: 05/12/25 01:22 Dose: Infused Documented By: JENISE Metronidazole (Flagyl) 500 mg in 100 mls @ 100 mls/hr IV Q8H [facility] Last Infusion: 05/12/25 06:33 Dose: Infused Documented By: JENISE Melatonin (Melatonin 3 Mg Tablet) 6 mg PO BEDTIME PRN PRN Reason: Insomnia Morphine Sulfate (Morphine Sulfate 4 Mg/Ml Cartridge) 3 mg IVPUSH Q3H PRN; Protocol PRN Reason: Pain, Severe (Pain Scale 7-10) Last Admin: 05/11/25 13:05 Dose: 3 mg Documented By: HERO Ondansetron HCl (Ondansetron Hcl 4 Mg/2 Ml Vial) 4 mg IVPUSH Q6H PRN PRN Reason: Nausea and Vomiting Last Admin: 05/10/25 20:48 Dose: 4 mg Documented By: LEFEBVA Oxycodone HCl (Oxycodone Hcl Immed Release 5 Mg Tablet) 10 mg PO Q4H PRN PRN Reason: Pain, Moderate(Pain Scale 4-6) Sodium Chloride (0.9 % Sodium Chloride Flush 3 Ml Syringe) 3 ml IVFLUSH QSHIFT [facility] Last Admin: 05/12/25 00:06 Dose: Not Given Documented By: JENISE Non-Admin Reason: IV Running <Domonique Romero PA-C - Last Filed: 05/12/25 08:00> Labs CBC & Chem 7: 05/12/25 06:45 05/12/25 06:45 <Domonique Romero PA-C - Last Filed: 05/12/25 08:00> Labs: Laboratory Results - last 24 hr 05/11/25 05/11/25 05/12/25 07:38 17:00 06:45 MCV 87.9 88.9 MCH 28.6 29.2 MCHC 32.5 32.8 RDW 13.4 13.2 Plt Count 300 296 MPV 10.5 10.6 Absolute Nucleated RBC 0.000 0.000 Nucleated RBC % (auto) 0.0 0.0 Anion Gap 12 14 Estim Creat Clear Calc 164.3 178.9 Estimated GFR > 60 > 60 Random Glucose 90 83 Calcium 8.9 D 8.7 Urine Color Yellow Urine Appearance Clear Urine pH >= 9.0 Ur Specific [place] 1.025 Urine Protein Trace Urine Glucose (UA) Negative Urine Ketones Negative Urine Blood Negative Urine Nitrite Negative Ur Leukocyte Esterase Trace H Urine RBC 0-2 Urine WBC 0-5 Ur Squamous Epith Cells 0-2 Urine Bacteria None Seen Hyaline Casts 0-2 <Domonique Romero PA-C - Last Filed: 05/12/25 08:00> Microbiology Microbiology Results: Microbiology 05/09/25 20:09 Blood Culture - Preliminary Blood - Venous No growth after 48 hours. 05/09/25 18:58 Blood Culture - Preliminary Blood - Venous No growth after 48 hours. <Domonique Romero PA-C - Last Filed: 05/12/25 08:00> Procedures Date of Service Date of Service: 05/12/25 <Domonique Romero PA-C - Last Filed: 05/12/25 08:00> 05/12/25 <Magen Avelar MD - Last Filed: 05/12/25 08:13> Progress Note: A&P Assessment and plan (1) Diverticulitis: Status: Acute <Domonique Romero PA-C - Last Filed: 05/12/25 08:00> Assessment and Plan: Main complaint is heartburn which he says has been chronic for years Denies lower abdominal pain Tolerating clear liquids well Passing flatus and BMs No fever No vomiting Abdomen is soft and benign Looks well overall Okay to try to advance diet today WBC continues to down drain Continue IV antibiotics Seen and examined independently <Magen Avelar MD - Last Filed: 05/12/25 08:13> Assessment and Plan: Feels well this morning, no abdominal pain.VSS. Abd exam very benign with mild suprapubic tenderness. WBC cont to downtrend. Cont IV abx. Will advance to solid diet. Can hold off on repeat imaging for now. Possibly home in next 1-2 days if continues to improve with follow up in the office to discuss elective sigmoid resection. <Domonique Romero PA-C - Last Filed: 05/12/25 08:00> Time Spent With Patient Time: Total time managing care of this patient today ____ minutes. <Domonique Romero PA-C - Last Filed: 05/12/25 08:00> Quality Stroke Does the patient have a stroke diagnosis?: No <Domonique Romero PA-C - Last Filed: 05/12/25 08:00> VTE Prior VTE?: No <Domonique Romero PA-C - Last Filed: 05/12/25 08:00> VTE Risk Level:: Medical - low <MILLY Celis Last Filed: 05/12/25 08:00> VTE Device Contraindication: N/A - Device Ordered <Domonique Romero PA-C - Last Filed: 05/12/25 08:00> VTE Drug Contraindication: Treatment Not Indicated <MILLY Celis Last Filed: 05/12/25 08:00>
[2025-05-12] MEDS: 0.9 % Sodium Chloride Flush 3 ML SYRINGE IVFLUSH ×2 (08:33→23:13)
[2025-05-12] MEDS: Lactated Ringers 1,000 ML 80 ML IVCONT ×2 (08:34→22:06)
[2025-05-12 15:23] VITALS: BP 130/85; PULSE 79; RESP 16; TEMP 36.6; O2SAT 98
--- NOTE | 2025-05-12 15:47 | MHC.CM.PN ---
PER MD NOTES, PT NOT MEDICALLY CLEARED, DIET BEING ADVANCED, PLAN TO DC IN ONE TO TWO DAYS DCP: HOME VIA PRIVATE TRANSPORT
--- NOTE | 2025-05-12 16:32 | PM.EVENT ---
Event Note Date of Service: 05/14/25 Event Note: Seen on afternoon rounds He says he feels well Denies abdominal pain Tolerated regular diet Passing flatus Abdomen is soft, benign and nontender Has remained afebrile Possible DC home tomorrow Time Spent With Patient Time: Total time managing care of this patient today ____ minutes.
[2025-05-12 18:55] VITALS: BP 119/73; PULSE 93; RESP 18; TEMP 36.6; O2SAT 98
[2025-05-13 04:00] VITALS: BP 110/78; PULSE 88; RESP 18; TEMP 36.6; O2SAT 96
[2025-05-13] MEDS: metroNIDAZOLE/NS 500 MG/100 ML PIGGYBACK 100 MG IV (06:14)
[2025-05-13 06:50] VITALS: BP 128/84; PULSE 81; RESP 16; TEMP 36.6; O2SAT 97
--- NOTE | 2025-05-13 07:52 | PM.PNGS ---
Subjective Subjective Date of Service: 05/13/25 <Domonique Romero PA-C - Last Filed: 05/13/25 07:53> 05/13/25 <Magen Avelar MD - Last Filed: 05/13/25 09:16> Interval history: Tolerated solid diet yesterday without increasing abd pain, nausea, vomiting. NOw having solid BMs. Denies abd pain this morning. Would like to go home. <Domonique Romero PA-C - Last Filed: 05/13/25 07:53> Physical Exam Vital Signs: Vital Signs: Last Vital Signs Temp 97.9 F 05/13/25 06:50 Pulse 81 05/13/25 06:50 Resp 16 05/13/25 06:50 BP 128/84 05/13/25 06:50 Pulse Ox 97 05/13/25 06:50 O2 Del Method Room Air 05/13/25 06:50 O2 Flow Rate 2 05/10/25 00:14 BMI result Body Mass Index 38.5 <Domonique Romero PA-C - Last Filed: 05/13/25 07:53> Const: General: comfortable, no acute distress and alert <Domonique Romero PA-C - Last Filed: 05/13/25 07:53> Orientation/consciousness: patient oriented x3 <Domonique Romero PA-C - Last Filed: 05/13/25 07:53> Resp: Effort & Inspection: normal respiratory effort <Domonique Romero PA-C - Last Filed: 05/13/25 07:53> GI: Other: soft nontender nondistended <Domonique Romero PA-C - Last Filed: 05/13/25 07:53> Palpation (GI): no guarding and not rigid <Domonique Romero PA-C - Last Filed: 05/13/25 07:53> Skin: General skin exam: no rashes or lesions noted <MILLY Celis Last Filed: 05/13/25 07:53> Neuro: General: patient oriented x3 and moves all extremities <MILLY Celis Last Filed: 05/13/25 07:53> Objective Data Active Medications Acetaminophen (Acetaminophen 325 Mg Tablet) 650 mg PO Q6H PRN PRN Reason: Pain, Mild 1-3,fever,headache Albuterol Sulfate (Albuterol Sulfate 90 Mcg 8 Gm Inhaler) 2 puff INHALE Q4H PRN PRN Reason: wheezing Calcium Carbonate (Calcium Carbonate 750 Mg Tab.Chew) 750 mg PO Q4H PRN PRN Reason: Heartburn Diphenhydramine HCl (Diphenhydramine Hcl 50 Mg/Ml Vial) 25 mg IVPUSH Q6H PRN PRN Reason: Urticaria, pruritus Lactated Ringer's (Lr) 1,000 mls @ 80 mls/hr IVCONT .[id number] [facility]S [facility]CLUDE 234 BEDS AT [facility] Last Admin: 05/13/25 02:12 Dose: Not Given Documented By: NURA Non-Admin Reason: IV Running Levofloxacin (Levaquin) 750 mg in 150 mls @ 100 mls/hr IV Q24H [facility] 234 BEDS AT [facility] Last Infusion: 05/13/25 00:45 Dose: Infused Documented By: NURA Metronidazole (Flagyl) 500 mg in 100 mls @ 100 mls/hr IV Q8H [facility]S [facility]CLUDE 234 BEDS AT [facility] Last Infusion: 05/13/25 07:18 Dose: Infused Documented By: STEPHON Melatonin (Melatonin 3 Mg Tablet) 6 mg PO BEDTIME PRN PRN Reason: Insomnia Morphine Sulfate (Morphine Sulfate 4 Mg/Ml Cartridge) 3 mg IVPUSH Q3H PRN; Protocol PRN Reason: Pain, Severe (Pain Scale 7-10) Last Admin: 05/11/25 13:05 Dose: 3 mg Documented By: HERO Omeprazole (Omeprazole 20 Mg Capsule.Dr) 20 mg PO DAILY@0630 COUNTS INCLUDE 234 BEDS AT [facility] Last Admin: 05/13/25 06:14 Dose: 20 mg Documented By: NURA Ondansetron HCl (Ondansetron Hcl 4 Mg/2 Ml Vial) 4 mg IVPUSH Q6H PRN PRN Reason: Nausea and Vomiting Last Admin: 05/10/25 20:48 Dose: 4 mg Documented By: LEFEBVA Oxycodone HCl (Oxycodone Hcl Immed Release 5 Mg Tablet) 10 mg PO Q4H PRN PRN Reason: Pain, Moderate(Pain Scale 4-6) Sodium Chloride (0.9 % Sodium Chloride Flush 3 Ml Syringe) 3 ml IVFLUSH QSHIFT COUNTS [facility]CLUDE 234 BEDS AT [facility] Last Admin: 05/13/25 07:06 Dose: Not Given Documented By: STEPHON Non-Admin Reason: IV Running <Domonique Romero PA-C - Last Filed: 05/13/25 07:53> Labs CBC & Chem 7: 05/12/25 06:45 05/12/25 06:45 <Domonique Romero PA-C - Last Filed: 05/13/25 07:53> Procedures Date of Service Date of Service: 05/13/25 <Domonique Romero PA-C - Last Filed: 05/13/25 07:53> 05/13/25 <Magen Avelar MD - Last Filed: 05/13/25 09:16> Progress Note: A&P Assessment and plan (1) Diverticulitis: Status: Acute <Domonique Romero PA-C - Last Filed: 05/13/25 07:53> Assessment and Plan: Continues to feel well Says he slept ?like a baby? Denies abdominal pain Tolerating diet well No fever Abdomen is soft, benign and nontender He said he is ready to be discharged Oral antibiotics Seen and examined independently Also advised on benefits of weight loss <Magen Avelar MD - Last Filed: 05/13/25 09:16> Assessment and Plan: Admitted for sigmoid diverticulitis with microperforation. Asymptomatic, tolerating solid diet and moving bowels. VSS. Abd very benign, nontender. Stable for dc to home today on course of flagyl and levaquin, f/u in office in 2 weeks. Patient comfortable with plan. <Domonique Romero PA-C - Last Filed: 05/13/25 07:53> Time Spent With Patient Time: Total time managing care of this patient today ____ minutes. <MILLY Celis Last Filed: 05/13/25 07:53> Quality Stroke Does the patient have a stroke diagnosis?: No <MILLY Celis Last Filed: 05/13/25 07:53> VTE Prior VTE?: No <MILLY Celis Last Filed: 05/13/25 07:53> VTE Risk Level:: Medical - low <Domonique Romero PA-C - Last Filed: 05/13/25 07:53> VTE Device Contraindication: N/A - Device Ordered <Domonique Romero PA-C - Last Filed: 05/13/25 07:53> VTE Drug Contraindication: Treatment Not Indicated <Domonique Romero PA-C - Last Filed: 05/13/25 07:53>
--- NOTE | 2025-05-13 08:23 | MHC.CM.PN ---
Patient medically cleared for dc home via private transport.
--- NOTE | 2025-05-13 14:33 | PM.DS ---
DS: Providers Provider Date of admission: 05/09/25 18:21 Date of discharge: 05/13/25 Primary care physician: Jovana Physician Attending physician on admission: Magen Avelar Attending physician on discharge: Magen Avelar DS: Diagnosis Discharge Diagnosis (1) Diverticulitis: Status: Acute DS: Summary Hospital Course Hospital Course: HPI AT ADMISSION: Oumar Lomax is a 24 year old male with morbid obesity, asthma, here in the ER because of left lower quadrant/groin pain. He says that this started yesterday afternoon. He said he thought that this started after he was lifting heavy objects at work with [employer]. This has been since that time. He felt that this started from the left flank all the way to the left lower quadrant and groin areas. He has pain currently is minimal. He does describe having some he has been vomiting today, multiple times although with small amounts. He is passing flatus. He denies fever or chills. He has had no previous surgeries on his abdomen. CAT scan showed diverticulitis with small amount of extraluminal air in the distal sigmoid consistent with a microperforation. He also has leukocytosis. HOSPITAL COURSE: He was therefore admitted for IV antibiotics and continued with bowel rest, IVF. He was hemodynamically stable with a relatively benign exam. He had an anaphylactic reaction to Zosyn in the ER with tachycardia, transient unresponsiveness, then hives. He was treated with supplemental oxygen, IV hydration, discontinuation of Zosyn, administration of steroids, antihistamines and bronchodilator. He was changed to IV flagyl/levaquin. Hospitalist consult was obtained and he stabilized and improved and was transferred to the medical/surgical floor. He improved symptomatically and he had less abdominal tenderness on exam. His diet was advanced to clear liquids. His WBC count downtrended significantly. His pain resolved and he began to move his bowels. His diet was advanced to solids. He remained inpatient for 5 days for IV abx. On the day of discharge, he felt well and was tolerating a solid diet without nausea or vomiting, had good pain control and was ambulating without difficulty. He was hemodynamically stable. His abdomen was benign with appropriate post op tenderness and clean and intact dressings. He felt ready for discharge. He was discharged to home on 05/13/25 in stable condition on a course of oral flagyl/levaquin. He is to follow up in the office in 2 weeks. Status at Discharge Functional status at discharge: independent ambulation Overall status at discharge: patient is back to baseline Time Attestation Discharge Coordination Time (in mins): 35 Quality: Safe Use of Opioids Does Pt have an Active Cancer Diagnosis on the Problem List?: No Quality: Stroke Does the patient have a stroke diagnosis?: No Physical Exam Vital Signs: Vital Signs: Last Vital Signs Temp 97.9 F 05/13/25 06:50 Pulse 81 05/13/25 06:50 Resp 16 05/13/25 06:50 BP 128/84 05/13/25 06:50 Pulse Ox 97 05/13/25 06:50 O2 Del Method Room Air 05/13/25 06:50 O2 Flow Rate 2 05/10/25 00:14 BMI result Body Mass Index 38.5 Const: General: comfortable, no acute distress and alert Orientation/consciousness: patient oriented x3 Resp: Effort & Inspection: normal respiratory effort GI: Inspection: No distended Palpation (GI): Soft to palpation, nontender and no guarding Skin: General skin exam: no rashes or lesions noted Neuro: General: patient oriented x3 and moves all extremities DS: Data Data Completed and Pending Labs on day of discharge: Preliminary micro results at discharge 05/09/25 20:09 Blood Culture - Preliminary Blood - Venous No growth after 48 hours. 05/09/25 18:58 Blood Culture - Preliminary Blood - Venous No growth after 48 hours. Discharge Plan Discharge Anticipated Discharge Date/Time: 05/13/25 07:51 Patient Disposition: Home, Self-Care Discharge Diagnosis: diverticulitis with microperforation Referrals: Magen Avelar MD [Physician, General Surgery] - 2 Weeks Physician,None [Primary Care Provider, Medical] - 1 Week Discharge Medications: New metronidazole 500 mg tablet 500 mg PO TID Qty: 28 0RF levofloxacin 500 mg tablet 500 mg PO DAILY Qty: 9 0RF Continued albuterol sulfate 90 mcg/actuation Hfa Aerosol Inhaler 2 puff INHALATION Q4-6H PRN (Reason: Respiratory Distress) Discharge Orders: Discharge Order (Routine); Ordered 05/13/25 Ordered By: Domonique Romero Diet: Advance to usual diet Activity on Discharge: As tolerated Stand Alone Forms: Patient Portal Discharge page, Work/School Release Print Language: Armenian Activity Restrictions/Additional Instructions: Follow up in office in two weeks with Dr. Avelar. ([phone]) Complete your antibiotics as prescribed. If you feel comfortable driving and working, you can return to work. Call Your Doctor If: ? ? -Your temperature exceeds 101.5? F? ? ? -You experience excessive abdominal pain or swelling ? ? -You have an unexpected reaction to medication ? ? -You experience continued vomiting/nausea and are unable to tolerate oral intake Care Plan Goals: Return to baseline health and resume normal activities. Health Concerns: sigmoid diverticulitis with microperforation Plan of Treatment: Nonoperative with IV antibiotics transitioned to oral Follow up in the office with Dr. Avelar to ensure resolution and discuss elective sigmoid resection Assessment: Improved Patient Instructions: Diverticulitis (DC) Discharge Date/Time: 05/13/25 09:26
== END 2025-05-13 09:26 | disposition home or self-care (01) | DRG 392 ==
LOC: HO.ED 16:51 → HO.EDOVER 18:29 → HO.S3 18:53
PROVIDERS: Physician Assistant; Admitting Provider Surgery; Emergency Provider Emergency Medicine Emergency Medical Services; Visit Provider Surgery
DX: K57.20 Diverticulitis of large intestine with perforation and abscess without bleeding (principal); T88.6XXA Anaphylactic reaction due to adverse effect of correct drug or medicament properly administered, initial encounter; T36.0X5A Adverse effect of penicillins, initial encounter; J45.20 Mild intermittent asthma, uncomplicated; E66.01 Morbid (severe) obesity due to excess calories; Z68.38 Body mass index [BMI] 38.0-38.9, adult
CPT/HCPCS: 36415; 74177; 80048; 80076; 81001; 83605; 83690; 83735; 85025; 85027; 87040; 93005; 94640; 99285; J0131; J1200; J1836; J1956; J2270; J2405; J2543; J2919; J7120; Q9967

== ENCOUNTER 2025-05-09 18:21 | Outpatient (BNV) | payer OTHER, SELFPAY | END 2025-05-09 19:04 | PROVIDERS: Admitting Provider Surgery; Emergency Provider Emergency Medicine Emergency Medical Services; Visit Provider Internal Medicine Cardiovascular Disease | DX: R00.0 Tachycardia, unspecified (principal) | CPT/HCPCS: 93010 ==

== ENCOUNTER → 2025-05-09 18:21 | Outpatient (BNV) | payer OTHER, SELFPAY | PROVIDERS: Admitting Provider Surgery; Emergency Provider Emergency Medicine Emergency Medical Services; Visit Provider Family Medicine | DX: K57.92 Diverticulitis of intestine, part unspecified, without perforation or abscess without bleeding (principal) | CPT/HCPCS: 99222 ==

== ENCOUNTER → 2025-05-09 18:21 | Outpatient (BNV) | payer OTHER, SELFPAY | PROVIDERS: Admitting Provider Surgery; Emergency Provider Emergency Medicine Emergency Medical Services; Visit Provider Surgery | DX: K57.92 Diverticulitis of intestine, part unspecified, without perforation or abscess without bleeding (principal) | CPT/HCPCS: 99222; 99232; 99239; 99499 ==